=== PATIENT | male | born 1945 ===

== ENCOUNTER 2017-09-15 13:35 | Inpatient (IN) | payer MEDICARE ==
[2017-09-15] MEDS ORDERED: Piperacill/Tazo 4.5gm in Dex 4.5 GM/100 ML BAG IVPB STA (14:06)
[2017-09-15] MEDS ORDERED: Vancomycin 1 gm/NS 200 ml 1 GM/200 ML BAG IVPB STA (14:06)
[2017-09-15 14:38] LABS: BASO # 0.1 K/uL (0.0-0.2); BASO % 0.5 % (0.0-2.0); EOS % 0.1 % (0.0-4.0); HEMOGLOBIN 8.3 g/dL (12.0-18.0); LYMPH # 0.1 K/uL (1.0-4.3); LYMPH % 1.4 % (20.0-40.0); MEAN CELL VOLUME 92.9 fL (80.0-94.0); MEAN CORPUSCULAR HEMOGLOBIN 31.8 pg (27.0-31.0); MEAN CORPUSCULAR HGB CONC 34.3 g/dL (33.0-37.0); MEAN PLATELET VOLUME 6.8 fL (7.2-11.7); MONO # 0.2 K/uL (0.0-0.8); MONO % 2.2 % (0.0-10.0); NEUT # 10.4 K/uL (1.8-7.0); NEUT % 95.8 % (50.0-75.0); PLATELET COUNT 241 K/uL (130-400); RED CELL DISTRIBUTION WIDTH 14.6 % (11.5-14.5); WHITE BLOOD COUNT 10.8 K/uL (4.8-10.8)
[2017-09-15 14:40] LABS: VENOUS BLOOD GAS BASE EXCESS 5.8 mmol/L (0.0-2.0); VENOUS BLOOD GAS PCO2 40 mmHg (40-60); VENOUS BLOOD GAS PO2 20 mm/Hg (30-55); VENOUS BLOOD PH 7.48 (7.32-7.43)
[2017-09-15 14:54] LABS: INR 1.1
[2017-09-15] MEDS ORDERED: Sodium Chloride 0.9% 500 ML IV ONE (15:01)
--- NOTE | 2017-09-15 15:01 | RAD ---
HISTORY: Sepsis Patient COMPARISON: No prior. FINDINGS: LUNGS: No consolidation para PLEURA: No significant pleural effusion identified, no pneumothorax apparent. CARDIOVASCULAR: Minimal cardiomegaly suspect. Central pulmonary venous engorgement. Triple-lumen catheter dialysis type tip in right atrium. OSSEOUS STRUCTURES: No significant abnormalities. VISUALIZED UPPER ABDOMEN: Right upper quadrant cholecystectomy clips inferred OTHER FINDINGS: None. IMPRESSION: Mild cardiomegaly and mild pulmonary venous congestion. No consolidative infiltrate appreciated
[2017-09-15 15:10] LABS: TROPONIN I 0.018 ng/mL (0.00-0.120)
[2017-09-15 15:18] LABS: SQUAMOUS EPITHIAL < 1 /hpf (0-5); URINE BILIRUBIN NEGATIVE (NEGATIVE); URINE BLOOD NEGATIVE (NEGATIVE); URINE CLARITY Clear (Clear); URINE COLOR Colorless (YELLOW); URINE GLUCOSE (UA) 2+ mg/dL (Normal); URINE LEUKOCYTE ESTERASE NEG Leu/uL (Negative); URINE PROTEIN 3+ mg/dL (NEGATIVE); URINE UROBILINOGEN NORMAL mg/dL (0.2-1.0)
[2017-09-15 15:19] LABS: ALB/GLOB RATIO 1.4 (1.0-2.1); ALBUMIN 4.2 g/dL (3.5-5.0); CALCIUM 9.9 mg/dl (8.6-10.4)
[2017-09-15 15:22] LABS: ANISOCYTOSIS SLIGHT; BANDS 2 % (0-2); EOSINOPHIL 1 % (0-4); HYPOCHROMIC SLIGHT; LYMPHOCYTE 2 % (20-40); MONOCYTE 1 % (0-10); NEUTROPHIL 94 % (50-75); PLATELET ESTIMATE NORMAL (NORMAL); POIKILOCYTOSIS SLIGHT; TOTAL CELLS COUNTED 100
--- NOTE | 2017-09-15 15:36 | C.PDOC ---
History Of Present Illness 72 y/o male with PMHx of HTN and DM presents to ED with complaints of fever, chills and vomiting since this morning with associated weakness feeling. Patient started dialysis 2 weeks ago, had portacath inserted on 09/01 and has been going to dialysis Tuesday, and Tuesday. As per who is at bedside patient did not go to dialysis today secondary to symptoms. Patient denies headache, abdominal pain, throat pain or any other complaints at this time. Time Seen by Provider: 09/15/17 13:56 Chief Complaint (Nursing): Fever History Per: Patient History/Exam Limitations: no limitations Onset/Duration Of Symptoms: Hrs Current Symptoms Are (Timing): Still Present Past Medical History Reviewed: Historical Data, Nursing Documentation, Vital Signs Vital Signs: Last Vital Signs Temp 101.4 F H 09/15/17 16:21 Pulse 118 H 09/15/17 16:21 Resp 18 09/15/17 16:21 BP 101/60 09/15/17 16:21 Pulse Ox 94 L 09/15/17 16:21 - Medical History PMH: HTN, End Stage Renal Disease, Chronic Kidney Disease Surgical History: Cholecystectomy Family History: States: No Known Family Hx - Social History Hx Alcohol Use: No Hx Substance Use: No - Immunization History Hx Tetanus Toxoid Vaccination: No Hx Influenza Vaccination: No Hx Pneumococcal Vaccination: No Review Of Systems Constitutional: Positive for: Fever. Negative for: Chills Gastrointestinal: Positive for: Nausea, Vomiting. Negative for: Abdominal Pain Skin: Negative for: Rash Neurological: Positive for: Weakness. Negative for: Numbness, Headache, Dizziness Physical Exam - Physical Exam Appears: Other (Ill appearing) Skin: Warm, Dry, No Rash Head: Atraumatic, Normacephalic Oral Mucosa: Moist Neck: Normal ROM, Supple Chest: Other (Lawrence cath right chest wall ) Cardiovascular: Rhythm Regular Respiratory: Normal Breath Sounds, No Rales, No Rhonchi, No Wheezing Gastrointestinal/Abdominal: Soft, No Tenderness, No Guarding, No Rebound Extremity: No Deformity, Other (AV shunt to left arm. Good bruit ) Neurological/Psych: Oriented x3, Normal Speech ED Course And Treatment - Laboratory Results Result Diagrams: 09/15/17 14:34 09/15/17 14:34 O2 Sat by Pulse Oximetry: 95 (RA) Pulse Ox Interpretation: Normal Progress Note: ECG, Blood work, UA, Venous blood gas ordered. IV fluids, Vancomycin, Reglan and Tylenol administered Medical Decision Making Medical Decision Making: spoke with Dr. Zhang Cell number [phone], he requested hospitalist service. Disposition Discussed With : Mary Clayton Doctor Will See Patient In The: Hospital Counseled Patient/Family Regarding: Studies Performed, Diagnosis - Disposition Disposition: HOSPITALIZED Disposition Time: 16:57 Condition: GUARDED Forms: [facility] (Welsh) - Clinical Impression Clinical Impression: Fever - Scribe Statement The provider has reviewed the documentation as recorded by the Scribe Glenys Raya All medical record entries made by the Shaniaibe were at my direction and personally dictated by me. I have reviewed the chart and agree that the record accurately reflects my personal performance of the history, physical exam, medical decision making, and the department course for this patient. I have also personally directed, reviewed, and agree with the discharge instructions and disposition. Decision To Admit - Pt Status Changed To: Hospital Disposition Of: Inpatient - Admit Certification Admit to Inpatient:: After my assessment, the patient will require hospitalization for at least two midnights. This is because of the severity of symptoms shown, intensity of services needed, and/or the medical risk in this patient being treated as an outpatient. - InPatient: Physician Admission Certification:: fever, possible line sepsis complicated by ESRD and newly on HD - . Bed Request Type: Telemetry Patient Diagnosis: Fever
[2017-09-15 17:20] LABS: VENOUS BLOOD GAS BASE EXCESS -1.2 mmol/L (0.0-2.0); VENOUS BLOOD GAS PCO2 39 mmHg (40-60); VENOUS BLOOD GAS PO2 29 mm/Hg (30-55); VENOUS BLOOD PH 7.39 (7.32-7.43)
--- NOTE | 2017-09-15 18:12 | CP.PCM.HP ---
<Johan Davis - Last Filed: 09/15/17 20:52> History of Present Illness - History of Present Illness History of Present Illness: PGY-1 H&P for Dr. Coker CC: Fever, chills This is a 72 year old male with PMHx HTN, DM, ESRD on (HD T, Th, S), prostate CA s/p seed implants who presents complaining of fever and chills that began this morning. Patient had been diagnosed with renal disease 5 years ago but has held off on initiating dialysis until recently. Patient was at [facility] where on 09/01/17, he received a permacath as well as left AV fistula on the same day. Patient received two dialysis sessions after this. Patient was supposed to undergo dialysis today but has missed it due to illness. Patient also experienced associated nausea/vomiting, weakness, and generalized malaise this morning. Patient has no other complaints at this time aside from chronic constipation. PMHx: HTN, DM, ESRD on (HD T, , S), prostate CA s/p seed implants PSHx: Permacath placement and left AV fistula on 09/01/17, multiple left lower extremity orthopedic surgeries, left cataract surgery Allergies: NKDA Social: Denies tobacco, alcohol, drugs. Lives with and ambulates without assistive device. Family Hx: Mother with HTN PMD: Dr. Zhang Home meds: Norvasc 2.5 mg PO daily, Flomax 0.4 mg PO daily,Renvela 800 mg PO TID , Vitamin D 1000 units daily Present on Admission - Present on Admission Any Indicators Present on Admission: No Review of Systems - Constitutional Constitutional: Chills, Fever, Weakness - EENT Eyes: absent: Change in Vision Ears: absent: Decreased Hearing Nose/Mouth/Throat: absent: Nasal Congestion - Cardiovascular Cardiovascular: absent: Chest Pain - Respiratory Respiratory: absent: Dyspnea - Gastrointestinal Gastrointestinal: Constipation (chronic), Nausea, Vomiting. absent: Abdominal Pain, Diarrhea - Genitourinary Genitourinary: absent: Dysuria - Musculoskeletal Musculoskeletal: absent: Back Pain - Integumentary Integumentary: absent: Rash - Neurological Neurological: Weakness - Psychiatric Psychiatric: Change in Appetite (decreased) - Endocrine Endocrine: Fatigue Past Patient History - Infectious Disease Hx of Infectious Diseases: None - Past Social History Smoking Status: Never Smoked - CARDIAC Hx Hypertension: Yes - RENAL Hx Chronic Kidney Disease: Yes - ENDOCRINE/METABOLIC Hx Diabetes Mellitus Type 2: Yes - GENITOURINARY/GYNECOLOGICAL Hx Prostate Problems: Yes - PSYCHIATRIC Hx Substance Use: No - SURGICAL HISTORY Hx Cholecystectomy: Yes - ANESTHESIA Hx Anesthesia: Yes Hx Anesthesia Reactions: No Meds Allergies/Adverse Reactions: Allergies Allergy/AdvReac Type Severity Reaction Status Date / Time No Known Allergies Allergy Verified 09/15/17 13:56 Physical Exam - Constitutional Appears: No Acute Distress - Head Exam Head Exam: ATRAUMATIC, NORMOCEPHALIC - Eye Exam Eye Exam: EOMI Pupil Exam: PERRL (reactive in right pupil but not left) - ENT Exam ENT Exam: Mucous Membranes Moist - Respiratory Exam Respiratory Exam: Rales. absent: Rhonchi, Wheezes Additional comments: Coarse breath sounds bilaterally - Cardiovascular Exam Cardiovascular Exam: Tachycardia, +S1, +S2 - GI/Abdominal Exam GI & Abdominal Exam: Normal Bowel Sounds, Soft. absent: Distended, Tenderness - Extremities Exam Extremities exam: Positive for: pedal pulses present. Negative for: pedal edema Additional comments: Left arm AV fistula with palpable bruits - Neurological Exam Neurological exam: Alert, CN II-XII Intact, Oriented x3 - Psychiatric Exam Psychiatric exam: Normal Affect, Normal Mood - Skin Skin Exam: Dry, Warm Additional comments: Right side chest permacath without any discharge or exudates. Results - Vital Signs Recent Vital Signs: Last Vital Signs Temp 101.4 F H 09/15/17 16:21 Pulse 118 H 09/15/17 16:21 Resp 18 09/15/17 16:21 BP 101/60 09/15/17 16:21 Pulse Ox 95 09/15/17 16:58 - Labs Result Diagrams: 09/15/17 14:34 09/15/17 14:34 Labs: Laboratory Results - last 24 hr 09/15/17 09/15/17 09/15/17 14:34 14:34 14:34 WBC 10.8 RBC 2.60 L Hgb 8.3 L Hct 24.1 L MCV 92.9 MCH 31.8 H MCHC 34.3 RDW 14.6 H Plt Count 241 MPV 6.8 L Neut % (Auto) 95.8 H Lymph % (Auto) 1.4 L Griggs % (Auto) 2.2 Eos % (Auto) 0.1 Baso % (Auto) 0.5 Neut # (Auto) 10.4 H Lymph # (Auto) 0.1 L Griggs # (Auto) 0.2 Eos # (Auto) 0.0 Baso # (Auto) 0.1 Neutrophils % (Manual) 94 H Band Neutrophils % 2 Lymphocytes % (Manual) 2 L Monocytes % (Manual) 1 Eosinophils % (Manual) 1 Platelet Estimate Normal Hypochromasia (manual) Slight Poikilocytosis (manual Slight Anisocytosis (manual) Slight PT 12.0 INR 1.1 APTT 26 pO2 VBG pH VBG pCO2 VBG HCO3 VBG Total CO2 VBG O2 Sat (Calc) VBG Base Excess VBG Potassium Glucose Lactate FiO2 Crit Value Called To Crit Value Called By Crit Value Read Back Blood Gas Notified Time Sodium 141 Potassium 4.6 Chloride 99 Carbon Dioxide 25 Anion Gap 21 H BUN 41 H Creatinine 7.8 H* Est GFR ( Amer) 8 Est GFR (Non-Af Amer) 7 Random Glucose 132 H Calcium 9.9 Phosphorus 3.0 Magnesium 1.7 Total Bilirubin 0.6 AST 20 ALT 10 L Alkaline Phosphatase 78 Troponin I 0.0180 NT-Pro-B Natriuret Pep 1090 H Total Protein 7.2 Albumin 4.2 Globulin 3.0 Albumin/Globulin Ratio 1.4 Venous Blood Potassium Urine Color Urine Clarity Urine pH Ur Specific [place] Urine Protein Urine Glucose (UA) Urine Ketones Urine Blood Urine Nitrate Urine Bilirubin Urine Urobilinogen Ur Leukocyte Esterase Urine WBC (Auto) Urine RBC (Auto) Ur Squamous Epith Cells Influenza Typ A,B (EIA) 09/15/17 09/15/17 09/15/17 14:35 15:07 15:44 WBC RBC Hgb Hct MCV MCH MCHC RDW Plt Count MPV Neut % (Auto) Lymph % (Auto) Griggs % (Auto) Eos % (Auto) Baso % (Auto) Neut # (Auto) Lymph # (Auto) Griggs # (Auto) Eos # (Auto) Baso # (Auto) Neutrophils % (Manual) Band Neutrophils % Lymphocytes % (Manual) Monocytes % (Manual) Eosinophils % (Manual) Platelet Estimate Hypochromasia (manual) Poikilocytosis (manual Anisocytosis (manual) PT INR APTT pO2 20 L VBG pH 7.48 H VBG pCO2 40 VBG HCO3 27.8 VBG Total CO2 31.0 H VBG O2 Sat (Calc) 41.1 VBG Base Excess 5.8 H VBG Potassium 4.3 Glucose 133 H Lactate 1.4 FiO2 21.0 Crit Value Called To Crit Value Called By Crit Value Read Back Blood Gas Notified Time Sodium 140.0 Potassium Chloride 105.0 Carbon Dioxide Anion Gap BUN Creatinine Est GFR ( Amer) Est GFR (Non-Af Amer) Random Glucose Calcium Phosphorus Magnesium Total Bilirubin AST ALT Alkaline Phosphatase Troponin I NT-Pro-B Natriuret Pep Total Protein Albumin Globulin Albumin/Globulin Ratio Venous Blood Potassium 4.3 Urine Color Colorless Urine Clarity Clear Urine pH 9.0 Ur Specific [place] 1.007 Urine Protein 3+ H Urine Glucose (UA) 2+ H Urine Ketones Negative Urine Blood Negative Urine Nitrate Negative Urine Bilirubin Negative Urine Urobilinogen Normal Ur Leukocyte Esterase Neg Urine WBC (Auto) < 1 Urine RBC (Auto) < 1 Ur Squamous Epith Cells < 1 Influenza Typ A,B (EIA) Negative for flu a/b 09/15/17 17:17 WBC RBC Hgb Hct MCV MCH MCHC RDW Plt Count MPV Neut % (Auto) Lymph % (Auto) Griggs % (Auto) Eos % (Auto) Baso % (Auto) Neut # (Auto) Lymph # (Auto) Griggs # (Auto) Eos # (Auto) Baso # (Auto) Neutrophils % (Manual) Band Neutrophils % Lymphocytes % (Manual) Monocytes % (Manual) Eosinophils % (Manual) Platelet Estimate Hypochromasia (manual) Poikilocytosis (manual Anisocytosis (manual) PT INR APTT pO2 29 L VBG pH 7.39 VBG pCO2 39 L VBG HCO3 22.8 VBG Total CO2 24.8 VBG O2 Sat (Calc) 64.5 VBG Base Excess -1.2 L VBG Potassium 3.0 L Glucose 442 H* D Lactate 0.8 FiO2 Crit Value Called To Dr mccain Crit Value Called By Dmitriy agarwal Crit Value Read Back Y Blood Gas Notified Time 1720 Sodium 133.0 Potassium Chloride 85.0 L Carbon Dioxide Anion Gap BUN Creatinine Est GFR ( Amer) Est GFR (Non-Af Amer) Random Glucose Calcium Phosphorus Magnesium Total Bilirubin AST ALT Alkaline Phosphatase Troponin I NT-Pro-B Natriuret Pep Total Protein Albumin Globulin Albumin/Globulin Ratio Venous Blood Potassium 3.0 L Urine Color Urine Clarity Urine pH Ur Specific [place] Urine Protein Urine Glucose (UA) Urine Ketones Urine Blood Urine Nitrate Urine Bilirubin Urine Urobilinogen Ur Leukocyte Esterase Urine WBC (Auto) Urine RBC (Auto) Ur Squamous Epith Cells Influenza Typ A,B (EIA) Assessment & Plan - Assessment and Plan (Free Text) Plan: Sepsis--Possible infected Dialysis Catheter f/u blood cultures f/u urine cultures Given Vancomycin and Zosyn in the ED ID consult, Dr. Jimenez, help appreciated Per Dr. Jimenez, one dose of Gentamicin 80 mg IV given in the ED Zosyn 2.25 gm Q8H Tylenol 650 mg PO Q6 prn fever Zofran 4 mg Q6 prn nausea/vomiting f/u random vanco in AM labs before starting Vancomycin f/u blood cultures drawn through dialysis catheter ESRD On HD T, , S Nephro consult, Dr. Santos, help appreciated Per nephro, no need for urgent dialysis on admission, will defer to tomorrow Resumed home Renvela 800 mg PO TID History of Hypertension Resumed home Norvasc 2.5 mg PO daily History of Diabetes Patient is not on any medications Regular ISS-medium dose Accuchecks Hypogylcemic Treatment Protocol f/u hemoglobin A1c History of Prostate CA Resumed home Flomax 0.4 mg PO daily Prophylaxis Liquid diet Heparin 5000 units SC Q8 Discussed with Dr. John Paul Davis PGY-1 <Varun Coker - Last Filed: 09/15/17 22:49> Results - Vital Signs Recent Vital Signs: Last Vital Signs Temp 99.7 F H 09/15/17 19:00 Pulse 99 H 09/15/17 19:00 Resp 20 09/15/17 19:00 BP 96/56 L 09/15/17 19:00 Pulse Ox 97 09/15/17 19:00 - Labs Result Diagrams: 09/15/17 14:34 09/15/17 14:34 Labs: Laboratory Results - last 24 hr 09/15/17 09/15/17 09/15/17 14:34 14:34 14:34 WBC 10.8 RBC 2.60 L Hgb 8.3 L Hct 24.1 L MCV 92.9 MCH 31.8 H MCHC 34.3 RDW 14.6 H Plt Count 241 MPV 6.8 L Neut % (Auto) 95.8 H Lymph % (Auto) 1.4 L Griggs % (Auto) 2.2 Eos % (Auto) 0.1 Baso % (Auto) 0.5 Neut # (Auto) 10.4 H Lymph # (Auto) 0.1 L Gr[place]gs # (Auto) 0.2 Eos # (Auto) 0.0 Baso # (Auto) 0.1 Neutrophils % (Manual) 94 H Band Neutrophils % 2 Lymphocytes % (Manual) 2 L Monocytes % (Manual) 1 Eosinophils % (Manual) 1 Platelet Estimate Normal Hypochromasia (manual) Slight Poikilocytosis (manual Slight Anisocytosis (manual) Slight PT 12.0 INR 1.1 APTT 26 pO2 VBG pH VBG pCO2 VBG HCO3 VBG Total CO2 VBG O2 Sat (Calc) VBG Base Excess VBG Potassium Glucose Lactate FiO2 Crit Value Called To Crit Value Called By Crit Value Read Back Blood Gas Notified Time Sodium 141 Potassium 4.6 Chloride 99 Carbon Dioxide 25 Anion Gap 21 H BUN 41 H Creatinine 7.8 H* Est GFR ( Amer) 8 Est GFR (Non-Af Amer) 7 POC Glucose (mg/dL) Random Glucose 132 H Calcium 9.9 Phosphorus 3.0 Magnesium 1.7 Total Bilirubin 0.6 AST 20 ALT 10 L Alkaline Phosphatase 78 Troponin I 0.0180 NT-Pro-B Natriuret Pep 1090 H Total Protein 7.2 Albumin 4.2 Globulin 3.0 Albumin/Globulin Ratio 1.4 Venous Blood Potassium Urine Color Urine Clarity Urine pH Ur Specific [place] Urine Protein Urine Glucose (UA) Urine Ketones Urine Blood Urine Nitrate Urine Bilirubin Urine Urobilinogen Ur Leukocyte Esterase Urine WBC (Auto) Urine RBC (Auto) Ur Squamous Epith Cells Influenza Typ A,B (EIA) 09/15/17 09/15/17 09/15/17 14:35 15:07 15:44 WBC RBC Hgb Hct MCV MCH MCHC RDW Plt Count MPV Neut % (Auto) Lymph % (Auto) Griggs % (Auto) Eos % (Auto) Baso % (Auto) Neut # (Auto) Lymph # (Auto) Griggs # (Auto) Eos # (Auto) Baso # (Auto) Neutrophils % (Manual) Band Neutrophils % Lymphocytes % (Manual) Monocytes % (Manual) Eosinophils % (Manual) Platelet Estimate Hypochromasia (manual) Poikilocytosis (manual Anisocytosis (manual) PT INR APTT pO2 20 L VBG pH 7.48 H VBG pCO2 40 VBG HCO3 27.8 VBG Total CO2 31.0 H VBG O2 Sat (Calc) 41.1 VBG Base Excess 5.8 H VBG Potassium 4.3 Glucose 133 H Lactate 1.4 FiO2 21.0 Crit Value Called To Crit Value Called By Crit Value Read Back Blood Gas Notified Time Sodium 140.0 Potassium Chloride 105.0 Carbon Dioxide Anion Gap BUN Creatinine Est GFR ( Amer) Est GFR (Non-Af Amer) POC Glucose (mg/dL) Random Glucose Calcium Phosphorus Magnesium Total Bilirubin AST ALT Alkaline Phosphatase Troponin I NT-Pro-B Natriuret Pep Total Protein Albumin Globulin Albumin/Globulin Ratio Venous Blood Potassium 4.3 Urine Color Colorless Urine Clarity Clear Urine pH 9.0 Ur Specific [place] 1.007 Urine Protein 3+ H Urine Glucose (UA) 2+ H Urine Ketones Negative Urine Blood Negative Urine Nitrate Negative Urine Bilirubin Negative Urine Urobilinogen Normal Ur Leukocyte Esterase Neg Urine WBC (Auto) < 1 Urine RBC (Auto) < 1 Ur Squamous Epith Cells < 1 Influenza Typ A,B (EIA) Negative for flu a/b 09/15/17 09/15/17 17:17 20:51 WBC RBC Hgb Hct MCV MCH MCHC RDW Plt Count MPV Neut % (Auto) Lymph % (Auto) Griggs % (Auto) Eos % (Auto) Baso % (Auto) Neut # (Auto) Lymph # (Auto) Griggs # (Auto) Eos # (Auto) Baso # (Auto) Neutrophils % (Manual) Band Neutrophils % Lymphocytes % (Manual) Monocytes % (Manual) Eosinophils % (Manual) Platelet Estimate Hypochromasia (manual) Poikilocytosis (manual Anisocytosis (manual) PT INR APTT pO2 29 L VBG pH 7.39 VBG pCO2 39 L VBG HCO3 22.8 VBG Total CO2 24.8 VBG O2 Sat (Calc) 64.5 VBG Base Excess -1.2 L VBG Potassium 3.0 L Glucose 442 H* D Lactate 0.8 FiO2 Crit Value Called To Dr mccain Crit Value Called By Dmitriy agarwal Crit Value Read Back Y Blood Gas Notified Time 1720 Sodium 133.0 Potassium Chloride 85.0 L Carbon Dioxide Anion Gap BUN Creatinine Est GFR ( Amer) Est GFR (Non-Af Amer) POC Glucose (mg/dL) 130 H Random Glucose Calcium Phosphorus Magnesium Total Bilirubin AST ALT Alkaline Phosphatase Troponin I NT-Pro-B Natriuret Pep Total Protein Albumin Globulin Albumin/Globulin Ratio Venous Blood Potassium 3.0 L Urine Color Urine Clarity Urine pH Ur Specific [place] Urine Protein Urine Glucose (UA) Urine Ketones Urine Blood Urine Nitrate Urine Bilirubin Urine Urobilinogen Ur Leukocyte Esterase Urine WBC (Auto) Urine RBC (Auto) Ur Squamous Epith Cells Influenza Typ A,B (EIA) Attending/Attestation - Attestation I have personally seen and examined this patient.: Yes I have fully participated in the care of the patient.: Yes I have reviewed all pertinent clinical information: Yes Notes (Text): Seen and examined.History taken from his and the patient 1.Fever with chills this morning/rule out sepsis 2.New dialysis patient/recent perma cath and AV access at 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 spoke to DR Santos. case discussed with the resident I agree with the recommendation of the resident's assessment and the plan
[2017-09-15] MEDS: (Novolin R) Insulin Human Regular 100 units/ml vial SC SCH (21:12)
[2017-09-15] MEDS: Piperacill/Tazo 2.25gm in Dex 2.25 GM/50 ML BAG IVPB SCH (23:48)
[2017-09-16] MEDS ORDERED: Piperacillin/Tazobact 2.25 GM in Sodium Chloride 100 ML IVPB SCH
[2017-09-16 06:32] LABS: BASO # 0.1 K/uL (0.0-0.2); BASO % 0.5 % (0.0-2.0); HEMOGLOBIN 6.8 g/dL (12.0-18.0); LYMPH # 0.2 K/uL (1.0-4.3); LYMPH % 1.9 % (20.0-40.0); MEAN CELL VOLUME 93.1 fL (80.0-94.0); MEAN CORPUSCULAR HEMOGLOBIN 31.6 pg (27.0-31.0); MEAN CORPUSCULAR HGB CONC 33.9 g/dL (33.0-37.0); MEAN PLATELET VOLUME 7.4 fL (7.2-11.7); MONO # 0.3 K/uL (0.0-0.8); NEUT # 10.6 K/uL (1.8-7.0); NEUT % 94.6 % (50.0-75.0); PLATELET COUNT 190 K/uL (130-400); RBC 2.17 Mil/uL (4.40-5.90); RED CELL DISTRIBUTION WIDTH 15.1 % (11.5-14.5); WHITE BLOOD COUNT 11.2 K/uL (4.8-10.8)
[2017-09-16 07:17] LABS: ALB/GLOB RATIO 1.4 (1.0-2.1); ALBUMIN 3.3 g/dL (3.5-5.0); CALCIUM 9.1 mg/dl (8.6-10.4)
[2017-09-16] MEDS: (Novolin R) Insulin Human Regular 100 units/ml vial SC SCH ×4 (07:41→21:46)
[2017-09-16] MEDS: Piperacill/Tazo 2.25gm in Dex 2.25 GM/50 ML BAG IVPB SCH ×2 (08:00→16:57)
[2017-09-16 08:19] LABS: BANDS 2 % (0-2); LYMPHOCYTE 3 % (20-40); MONOCYTE 2 % (0-10); TOTAL CELLS COUNTED 100
[2017-09-16 08:20] LABS: NEUTROPHIL 93 % (50-75); PLATELET ESTIMATE NORMAL (NORMAL)
[2017-09-16 08:21] LABS: ANISOCYTOSIS SLIGHT; POIKILOCYTOSIS SLIGHT; TARGET CELLS SLIGHT
[2017-09-16 08:22] LABS: HYPOCHROMIC MODERATE
[2017-09-16] MEDS ORDERED: Epoetin Alfa 10,000 unit/ml Dialysis IV ONE ×2 (10:15→12:15)
[2017-09-16] MEDS ORDERED: Vancomycin 1 gm/NS 200 ml 1 GM/200 ML BAG IVPB PRN (11:01)
--- NOTE | 2017-09-16 12:32 | CP.PCM.PN ---
Subjective - Date & Time of Evaluation Date of Evaluation: 09/16/17 Time of Evaluation: 09:20 - Subjective Subjective: Medicine progress note for Dr. Nicholas Patient seen and examined at bedside this morning. Patient reports feeling better than yesterday. He did have an episode of clear vomit this morning but is now tolerating his liquid diet. Patient also complaining of cough with clear sputum. Patient has no other complaints at this time. Later during dialysis, patient developed chills, and so dialysis was stopped. Objective - Vital Signs/Intake and Output Vital Signs (last 24 hours): Temp Pulse Resp BP Pulse Ox 97.7 F 67 16 127/74 97 09/16/17 12:02 09/16/17 12:02 09/16/17 12:02 09/16/17 12:02 09/16/17 10:50 Intake and Output: 09/16/17 09/16/17 06:59 18:59 Intake Total 150 355 Output Total 100 Balance 50 355 - Medications Medications: Current Medications Acetaminophen (Tylenol 325mg Tab) 650 mg PO Q6 PRN PRN Reason: Fever >100.4 F Ergocalciferol (Drisdol 50,000 Intl Units Cap) 1 cap PO QWK [facility] Heparin Sodium (Porcine) (Heparin) 5,000 units SC Q8 [facility] Last Admin: 09/16/17 05:41 Dose: 5,000 units Piperacillin Sod/Tazobactam Sod (Zosyn 2.25 Gm Iv Premix) 2.25 gm in 50 mls @ 100 mls/hr IVPB Q8H [facility] Last Admin: 09/16/17 08:00 Dose: 100 mls/hr Vancomycin/Sodium Chloride (Vancomycin 1 Gm/Ns 200 Ml) 1 gm in 200 mls @ 166.7 mls/hr IVPB DIAL PRN; Protocol PRN Reason: give post dialysis Insulin Human Regular (Novolin R) 0 unit SC ACHS VICKY PRN Reason: Protocol Last Admin: 09/16/17 11:16 Dose: Not Given Ondansetron HCl (Zofran Inj) 4 mg IVP Q6 PRN PRN Reason: Nausea/Vomiting Last Admin: 09/16/17 08:01 Dose: 4 mg Pantoprazole Sodium (Protonix Inj) 40 mg IVP DAILY [facility] Last Admin: 09/16/17 09:40 Dose: 40 mg Sevelamer Carbonate (Renvela) 800 mg PO TID [facility] Last Admin: 09/16/17 09:40 Dose: 800 mg Tamsulosin HCl (Flomax) 0.4 mg PO DAILY [facility] Last Admin: 09/16/17 09:40 Dose: 0.4 mg - Labs Labs: 09/16/17 06:22 09/16/17 06:22 PT 12.0 SECONDS (9.7-12.2) 09/15/17 14:34 INR 1.1 09/15/17 14:34 APTT 29 SECONDS (21-34) 09/16/17 06:22 - Additional Findings Additional findings: - Constitutional Appears: No Acute Distress - Head Exam Head Exam: ATRAUMATIC, NORMOCEPHALIC - Eye Exam Eye Exam: EOMI Pupil Exam: PERRL (reactive in right pupil but not left) - ENT Exam ENT Exam: Mucous Membranes Moist - Respiratory Exam Respiratory Exam: Rales. absent: Rhonchi, Wheezes Additional comments: Coarse breath sounds bilaterally - Cardiovascular Exam Cardiovascular Exam: Tachycardia, +S1, +S2 - GI/Abdominal Exam GI & Abdominal Exam: Normal Bowel Sounds, Soft. absent: Distended, Tenderness - Extremities Exam Extremities exam: Positive for: pedal pulses present. Negative for: pedal edema Additional comments: Left arm AV fistula with palpable bruits - Neurological Exam Neurological exam: Alert, CN II-XII Intact, Oriented x3 - Psychiatric Exam Psychiatric exam: Normal Affect, Normal Mood - Skin Skin Exam: Dry, Warm Additional comments: Right side chest permacath without any discharge or exudates. Assessment and Plan - Assessment and Plan (Free Text) Plan: Sepsis--Possible infected Dialysis Catheter blood cultures grew gram positive cocci urine cultures negative Given Vancomycin and Zosyn in the ED ID consult, Dr. Meadows, help appreciated Per Dr. Meadows, one dose of Gentamicin 80 mg IV given in the ED Zosyn 2.25 gm Q8H Tylenol 650 mg PO Q6 prn fever Zofran 4 mg Q6 prn nausea/vomiting Vancomycin 1 gm IV given today after dialysis f/u blood cultures drawn through dialysis catheter Vascular surgery consult, Dr. Mccabe, help appreciated * dialysis catheter removed and a new one will be placed likely on Tuesday ESRD Originally scheduled HD , Nephro consult, Dr. Santos, help appreciated Resumed home Renvela 800 mg PO TID Will undergo dialysis after new catheter placed History of Hypertension Resumed home Norvasc 2.5 mg PO daily History of Anemia Likely of chronic disease Transfused 1 unit of pRBCs this morning History of Diabetes Patient is not on any medications Regular ISS-medium dose Accuchecks Hypogylcemic Treatment Protocol Hemoglobin A1c 5.9 History of Prostate CA Resumed home Flomax 0.4 mg PO daily Prophylaxis Liquid diet Heparin 5000 units SC Q8 Protonix 40 mg IV daily Simethicone Discussed with Dr. Cristopher Davis PGY-1
[2017-09-16] MEDS ORDERED: Simethicone 40 mg/0.6 ml Liquid (30 ml) PO PRN (12:41)
--- NOTE | 2017-09-16 12:51 | CP.PCM.CON ---
History of Present Illness - History of Present Illness History of Present Illness: Vascular Surgery Consult Note for Dr. Mccabe the Patient is a 72yo M that presents with fevers and chills that occurred while undergoing dialysis through his right Permacath. Vascular surgery was consulted for suspected infected permacath. He had a permacath and LUE AVF created at [facility] on 09/[address] Baca. The patient reports one episode of vomiting this morning with associated fevers and chills, the patient currently denies abd pain, dizziness, numbness or tingling in extremities, chest pain, shortness of breath, diarrhea, constipation, discharge from his permacatch or surgical site on his LUE. PMH: DM, HTN, ESRD on HD TTS, Prostate CA PSH: Permacath and LUE AVF creation on 09/01 Allergies: NKDA Review of Systems - Constitutional Constitutional: Chills, Fever - Cardiovascular Cardiovascular: absent: Chest Pain, Chest Pain at Rest, Dyspnea - Respiratory Respiratory: absent: Cough, Dyspnea - Gastrointestinal Gastrointestinal: absent: Abdominal Pain - Integumentary Integumentary: absent: Bleeding Lesions, Swelling, Unusual Bruising Past Patient History - Infectious Disease Hx of Infectious Diseases: None - Past Medical History & Family History Past Medical History?: Yes - Past Social History Smoking Status: Never Smoked - CARDIAC Hx Hypertension: Yes - PULMONARY Hx Respiratory Disorders: No - NEUROLOGICAL Hx Neurological Disorder: No - HEENT Hx Cataracts: Yes - RENAL Hx Chronic Kidney Disease: Yes - ENDOCRINE/METABOLIC Hx Diabetes Mellitus Type 2: Yes - HEMATOLOGICAL/ONCOLOGICAL Hx Blood Disorders: Yes Hx Anemia: Yes - INTEGUMENTARY Hx Dermatological Problems: No - MUSCULOSKELETAL/RHEUMATOLOGICAL Hx Falls: No - GASTROINTESTINAL Hx Gastrointestinal Disorders: No - GENITOURINARY/GYNECOLOGICAL Hx Prostate Problems: Yes - PSYCHIATRIC Hx Substance Use: No - SURGICAL HISTORY Hx Cholecystectomy: Yes - ANESTHESIA Hx Anesthesia: Yes Hx Anesthesia Reactions: No Meds Allergies/Adverse Reactions: Allergies Allergy/AdvReac Type Severity Reaction Status Date / Time No Known Allergies Allergy Verified 09/15/17 13:56 - Medications Medications: Current Medications Acetaminophen (Tylenol 325mg Tab) 650 mg PO Q6 PRN PRN Reason: Fever >100.4 F Ergocalciferol (Drisdol 50,000 Intl Units Cap) 1 cap PO QWK [facility] Heparin Sodium (Porcine) (Heparin) 5,000 units SC Q8 [facility] Last Admin: 09/16/17 05:41 Dose: 5,000 units Piperacillin Sod/Tazobactam Sod (Zosyn 2.25 Gm Iv Premix) 2.25 gm in 50 mls @ 100 mls/hr IVPB Q8H [facility] Last Admin: 09/16/17 08:00 Dose: 100 mls/hr Vancomycin/Sodium Chloride (Vancomycin 1 Gm/Ns 200 Ml) 1 gm in 200 mls @ 166.7 mls/hr IVPB DIAL PRN; Protocol PRN Reason: give post dialysis Insulin Human Regular (Novolin R) 0 unit SC ACHS [facility] PRN Reason: Protocol Last Admin: 09/16/17 11:16 Dose: Not Given Ondansetron HCl (Zofran Inj) 4 mg IVP Q6 PRN PRN Reason: Nausea/Vomiting Last Admin: 09/16/17 08:01 Dose: 4 mg Pantoprazole Sodium (Protonix Inj) 40 mg IVP DAILY [facility] Last Admin: 09/16/17 09:40 Dose: 40 mg Sevelamer Carbonate (Renvela) 800 mg PO TID [facility] Last Admin: 09/16/17 09:40 Dose: 800 mg Simethicone (Mylicon Liq) 40 mg PO QID PRN PRN Reason: gas retention/gas pain Tamsulosin HCl (Flomax) 0.4 mg PO DAILY [facility] Last Admin: 09/16/17 09:40 Dose: 0.4 mg Physical Exam - Constitutional Appears: Well, No Acute Distress - Head Exam Head Exam: ATRAUMATIC, NORMAL INSPECTION - Eye Exam Eye Exam: Normal appearance - ENT Exam ENT Exam: Mucous Membranes Moist - Respiratory Exam Respiratory Exam: NORMAL BREATHING PATTERN - GI/Abdominal Exam GI & Abdominal Exam: Soft. absent: Distended - Extremities Exam Extremities exam: Positive for: normal capillary refill Additional comments: Mild erythema around permacath insertion site. LUE AVF present, good thrill, no drainge noted from surgical site. - Neurological Exam Neurological exam: Alert, Oriented x3 - Psychiatric Exam Psychiatric exam: Normal Affect, Normal Mood - Skin Skin Exam: Dry, Intact, Normal Color, Warm Results - Vital Signs Recent Vital Signs: Last Vital Signs Temp 97.7 F 09/16/17 12:02 Pulse 67 09/16/17 12:02 Resp 16 09/16/17 12:02 BP 127/74 09/16/17 12:02 Pulse Ox 97 09/16/17 10:50 - Labs Result Diagrams: 09/16/17 06:22 09/16/17 06:22 Labs: Laboratory Results - last 24 hr 09/15/17 09/15/17 09/15/17 14:34 14:34 14:34 WBC 10.8 RBC 2.60 L Hgb 8.3 L Hct 24.1 L MCV 92.9 MCH 31.8 H MCHC 34.3 RDW 14.6 H Plt Count 241 MPV 6.8 L Neut % (Auto) 95.8 H Lymph % (Auto) 1.4 L [place] % (Auto) 2.2 Eos % (Auto) 0.1 Baso % (Auto) 0.5 Neut # (Auto) 10.4 H Lymph # (Auto) 0.1 L [place] # (Auto) 0.2 Eos # (Auto) 0.0 Baso # (Auto) 0.1 Neutrophils % (Manual) 94 H Band Neutrophils % 2 Lymphocytes % (Manual) 2 L Monocytes % (Manual) 1 Eosinophils % (Manual) 1 Platelet Estimate Normal Hypochromasia (manual) Slight Poikilocytosis (manual Slight Anisocytosis (manual) Slight Target Cells PT 12.0 INR 1.1 APTT 26 pO2 VBG pH VBG pCO2 VBG HCO3 VBG Total CO2 VBG O2 Sat (Calc) VBG Base Excess VBG Potassium Glucose Lactate FiO2 Crit Value Called To Crit Value Called By Crit Value Read Back Blood Gas Notified Time Sodium 141 Potassium 4.6 Chloride 99 Carbon Dioxide 25 Anion Gap 21 H BUN 41 H Creatinine 7.8 H* Est GFR ( Amer) 8 Est GFR (Non-Af Amer) 7 POC Glucose (mg/dL) Random Glucose 132 H Hemoglobin A1c Calcium 9.9 Phosphorus 3.0 Magnesium 1.7 Total Bilirubin 0.6 AST 20 ALT 10 L Alkaline Phosphatase 78 Troponin I 0.0180 NT-Pro-B Natriuret Pep 1090 H Total Protein 7.2 Albumin 4.2 Globulin 3.0 Albumin/Globulin Ratio 1.4 Venous Blood Potassium Urine Color Urine Clarity Urine pH Ur Specific [place] Urine Protein Urine Glucose (UA) Urine Ketones Urine Blood Urine Nitrate Urine Bilirubin Urine Urobilinogen Ur Leukocyte Esterase Urine WBC (Auto) Urine RBC (Auto) Ur Squamous Epith Cells Random Vancomycin Influenza Typ A,B (EIA) Blood Type Blood Type Confirm Antibody Screen 09/15/17 09/15/17 09/15/17 14:35 15:07 15:44 WBC RBC Hgb Hct MCV MCH MCHC RDW Plt Count MPV Neut % (Auto) Lymph % (Auto) [place] % (Auto) Eos % (Auto) Baso % (Auto) Neut # (Auto) Lymph # (Auto) [place] # (Auto) Eos # (Auto) Baso # (Auto) Neutrophils % (Manual) Band Neutrophils % Lymphocytes % (Manual) Monocytes % (Manual) Eosinophils % (Manual) Platelet Estimate Hypochromasia (manual) Poikilocytosis (manual Anisocytosis (manual) Target Cells PT INR APTT pO2 20 L VBG pH 7.48 H VBG pCO2 40 VBG HCO3 27.8 VBG Total CO2 31.0 H VBG O2 Sat (Calc) 41.1 VBG Base Excess 5.8 H VBG Potassium 4.3 Glucose 133 H Lactate 1.4 FiO2 21.0 Crit Value Called To Crit Value Called By Crit Value Read Back Blood Gas Notified Time Sodium 140.0 Potassium Chloride 105.0 Carbon Dioxide Anion Gap BUN Creatinine Est GFR ( Amer) Est GFR (Non-Af Amer) POC Glucose (mg/dL) Random Glucose Hemoglobin A1c Calcium Phosphorus Magnesium Total Bilirubin AST ALT Alkaline Phosphatase Troponin I NT-Pro-B Natriuret Pep Total Protein Albumin Globulin Albumin/Globulin Ratio Venous Blood Potassium 4.3 Urine Color Colorless Urine Clarity Clear Urine pH 9.0 Ur Specific [place] 1.007 Urine Protein 3+ H Urine Glucose (UA) 2+ H Urine Ketones Negative Urine Blood Negative Urine Nitrate Negative Urine Bilirubin Negative Urine Urobilinogen Normal Ur Leukocyte Esterase Neg Urine WBC (Auto) < 1 Urine RBC (Auto) < 1 Ur Squamous Epith Cells < 1 Random Vancomycin Influenza Typ A,B (EIA) Negative for flu a/b Blood Type Blood Type Confirm Antibody Screen 09/15/17 09/15/17 09/16/17 17:17 20:51 06:01 WBC RBC Hgb Hct MCV MCH MCHC RDW Plt Count MPV Neut % (Auto) Lymph % (Auto) [place] % (Auto) Eos % (Auto) Baso % (Auto) Neut # (Auto) Lymph # (Auto) [place] # (Auto) Eos # (Auto) Baso # (Auto) Neutrophils % (Manual) Band Neutrophils % Lymphocytes % (Manual) Monocytes % (Manual) Eosinophils % (Manual) Platelet Estimate Hypochromasia (manual) Poikilocytosis (manual Anisocytosis (manual) Target Cells PT INR APTT pO2 29 L VBG pH 7.39 VBG pCO2 39 L VBG HCO3 22.8 VBG Total CO2 24.8 VBG O2 Sat (Calc) 64.5 VBG Base Excess -1.2 L VBG Potassium 3.0 L Glucose 442 H* D Lactate 0.8 FiO2 Crit Value Called To Dr mccain Crit Value Called By Dmitriy agarwal Crit Value Read Back Y Blood Gas Notified Time 1720 Sodium 133.0 Potassium Chloride 85.0 L Carbon Dioxide Anion Gap BUN Creatinine Est GFR ( Amer) Est GFR (Non-Af Amer) POC Glucose (mg/dL) 130 H 130 H Random Glucose Hemoglobin A1c Calcium Phosphorus Magnesium Total Bilirubin AST ALT Alkaline Phosphatase Troponin I NT-Pro-B Natriuret Pep Total Protein Albumin Globulin Albumin/Globulin Ratio Venous Blood Potassium 3.0 L Urine Color Urine Clarity Urine pH Ur Specific [place] Urine Protein Urine Glucose (UA) Urine Ketones Urine Blood Urine Nitrate Urine Bilirubin Urine Urobilinogen Ur Leukocyte Esterase Urine WBC (Auto) Urine RBC (Auto) Ur Squamous Epith Cells Random Vancomycin Influenza Typ A,B (EIA) Blood Type Blood Type Confirm Antibody Screen 09/16/17 09/16/17 09/16/17 06:22 06:22 06:22 WBC 11.2 H RBC 2.17 L Hgb 6.8 L Hct 20.2 L MCV 93.1 MCH 31.6 H MCHC 33.9 RDW 15.1 H Plt Count 190 MPV 7.4 Neut % (Auto) 94.6 H Lymph % (Auto) 1.9 L [place] % (Auto) 3.0 Eos % (Auto) 0.0 Baso % (Auto) 0.5 Neut # (Auto) 10.6 H Lymph # (Auto) 0.2 L [place] # (Auto) 0.3 Eos # (Auto) 0.0 Baso # (Auto) 0.1 Neutrophils % (Manual) 93 H Band Neutrophils % 2 Lymphocytes % (Manual) 3 L Monocytes % (Manual) 2 Eosinophils % (Manual) Platelet Estimate Normal Hypochromasia (manual) Moderate Poikilocytosis (manual Slight Anisocytosis (manual) Slight Target Cells Slight PT INR APTT pO2 VBG pH VBG pCO2 VBG HCO3 VBG Total CO2 VBG O2 Sat (Calc) VBG Base Excess VBG Potassium Glucose Lactate FiO2 Crit Value Called To Crit Value Called By Crit Value Read Back Blood Gas Notified Time Sodium 139 Potassium 4.7 Chloride 100 Carbon Dioxide 23 Anion Gap 20 BUN 49 H Creatinine 8.5 H* Est GFR ( Amer) 7 Est GFR (Non-Af Amer) 6 POC Glucose (mg/dL) Random Glucose 111 H Hemoglobin A1c Calcium 9.1 Phosphorus 5.1 H Magnesium 1.8 Total Bilirubin 0.7 AST 23 ALT 17 L D Alkaline Phosphatase 54 Troponin I NT-Pro-B Natriuret Pep Total Protein 5.7 L Albumin 3.3 L D Globulin 2.4 Albumin/Globulin Ratio 1.4 Venous Blood Potassium Urine Color Urine Clarity Urine pH Ur Specific [place] Urine Protein Urine Glucose (UA) Urine Ketones Urine Blood Urine Nitrate Urine Bilirubin Urine Urobilinogen Ur Leukocyte Esterase Urine WBC (Auto) Urine RBC (Auto) Ur Squamous Epith Cells Random Vancomycin 14.32 Influenza Typ A,B (EIA) Blood Type Blood Type Confirm Antibody Screen 09/16/17 09/16/17 09/16/17 06:22 06:22 08:26 WBC RBC Hgb Hct MCV MCH MCHC RDW Plt Count MPV Neut % (Auto) Lymph % (Auto) [place] % (Auto) Eos % (Auto) Baso % (Auto) Neut # (Auto) Lymph # (Auto) [place] # (Auto) Eos # (Auto) Baso # (Auto) Neutrophils % (Manual) Band Neutrophils % Lymphocytes % (Manual) Monocytes % (Manual) Eosinophils % (Manual) Platelet Estimate Hypochromasia (manual) Poikilocytosis (manual Anisocytosis (manual) Target Cells PT INR APTT 29 pO2 VBG pH VBG pCO2 VBG HCO3 VBG Total CO2 VBG O2 Sat (Calc) VBG Base Excess VBG Potassium Glucose Lactate FiO2 Crit Value Called To Crit Value Called By Crit Value Read Back Blood Gas Notified Time Sodium Potassium Chloride Carbon Dioxide Anion Gap BUN Creatinine Est GFR ( Amer) Est GFR (Non-Af Amer) POC Glucose (mg/dL) Random Glucose Hemoglobin A1c 5.9 Calcium Phosphorus Magnesium Total Bilirubin AST ALT Alkaline Phosphatase Troponin I NT-Pro-B Natriuret Pep Total Protein Albumin Globulin Albumin/Globulin Ratio Venous Blood Potassium Urine Color Urine Clarity Urine pH Ur Specific [place] Urine Protein Urine Glucose (UA) Urine Ketones Urine Blood Urine Nitrate Urine Bilirubin Urine Urobilinogen Ur Leukocyte Esterase Urine WBC (Auto) Urine RBC (Auto) Ur Squamous Epith Cells Random Vancomycin Influenza Typ A,B (EIA) Blood Type B POSITIVE Blood Type Confirm B POSITIVE Antibody Screen Negative 09/16/17 11:08 WBC RBC Hgb Hct MCV MCH MCHC RDW Plt Count MPV Neut % (Auto) Lymph % (Auto) [place] % (Auto) Eos % (Auto) Baso % (Auto) Neut # (Auto) Lymph # (Auto) [place] # (Auto) Eos # (Auto) Baso # (Auto) Neutrophils % (Manual) Band Neutrophils % Lymphocytes % (Manual) Monocytes % (Manual) Eosinophils % (Manual) Platelet Estimate Hypochromasia (manual) Poikilocytosis (manual Anisocytosis (manual) Target Cells PT INR APTT pO2 VBG pH VBG pCO2 VBG HCO3 VBG Total CO2 VBG O2 Sat (Calc) VBG Base Excess VBG Potassium Glucose Lactate FiO2 Crit Value Called To Crit Value Called By Crit Value Read Back Blood Gas Notified Time Sodium Potassium Chloride Carbon Dioxide Anion Gap BUN Creatinine Est GFR ( Amer) Est GFR (Non-Af Amer) POC Glucose (mg/dL) 143 H Random Glucose Hemoglobin A1c Calcium Phosphorus Magnesium Total Bilirubin AST ALT Alkaline Phosphatase Troponin I NT-Pro-B Natriuret Pep Total Protein Albumin Globulin Albumin/Globulin Ratio Venous Blood Potassium Urine Color Urine Clarity Urine pH Ur Specific [place] Urine Protein Urine Glucose (UA) Urine Ketones Urine Blood Urine Nitrate Urine Bilirubin Urine Urobilinogen Ur Leukocyte Esterase Urine WBC (Auto) Urine RBC (Auto) Ur Squamous Epith Cells Random Vancomycin Influenza Typ A,B (EIA) Blood Type Blood Type Confirm Antibody Screen Assessment & Plan - Assessment and Plan (Free Text) Assessment: 72yo M w/ Infected Permacath Plan: -Permacath removed -Plan for new permacath on Tuesday 09/19 -continue Abx -continue medicine recommendations -discussed with attending, Dr. Estelle Larsen, PGY-3
--- NOTE | 2017-09-16 13:33 | CARD ---
APPROVED REPORT EKG Measurement Heart [id number] <Conclusion> Sinus tachycardia Left axis deviation Right bundle branch block Abnormal ECG
[2017-09-16] MEDS ORDERED: Simethicone 80 mg Chewtab PO PRN (14:45)
--- NOTE | 2017-09-16 15:27 | CP.PCM.CON ---
History of Present Illness - History of Present Illness History of Present Illness: dictated Past Patient History - Infectious Disease Hx of Infectious Diseases: None - Past Medical History & Family History Past Medical History?: Yes - Past Social History Smoking Status: Never Smoked - CARDIAC Hx Hypertension: Yes - PULMONARY Hx Respiratory Disorders: No - NEUROLOGICAL Hx Neurological Disorder: No - HEENT Hx Cataracts: Yes - RENAL Hx Chronic Kidney Disease: Yes - ENDOCRINE/METABOLIC Hx Diabetes Mellitus Type 2: Yes - HEMATOLOGICAL/ONCOLOGICAL Hx Blood Disorders: Yes Hx Anemia: Yes - INTEGUMENTARY Hx Dermatological Problems: No - MUSCULOSKELETAL/RHEUMATOLOGICAL Hx Falls: No - GASTROINTESTINAL Hx Gastrointestinal Disorders: No - GENITOURINARY/GYNECOLOGICAL Hx Prostate Problems: Yes - PSYCHIATRIC Hx Substance Use: No - SURGICAL HISTORY Hx Cholecystectomy: Yes - ANESTHESIA Hx Anesthesia: Yes Hx Anesthesia Reactions: No Meds Allergies/Adverse Reactions: Allergies Allergy/AdvReac Type Severity Reaction Status Date / Time No Known Allergies Allergy Verified 09/15/17 13:56 - Medications Medications: Current Medications Acetaminophen (Tylenol 325mg Tab) 650 mg PO Q6 PRN PRN Reason: Fever >100.4 F Last Admin: 09/16/17 13:15 Dose: 650 mg Ergocalciferol (Drisdol 50,000 Intl Units Cap) 1 cap PO QWK [facility] Heparin Sodium (Porcine) (Heparin) 5,000 units SC Q8 [facility] Last Admin: 09/16/17 05:41 Dose: 5,000 units Piperacillin Sod/Tazobactam Sod (Zosyn 2.25 Gm Iv Premix) 2.25 gm in 50 mls @ 100 mls/hr IVPB Q8H [facility] Last Admin: 09/16/17 08:00 Dose: 100 mls/hr Insulin Human Regular (Novolin R) 0 unit SC ACHS [facility] PRN Reason: Protocol Last Admin: 09/16/17 11:16 Dose: Not Given Ondansetron HCl (Zofran Inj) 4 mg IVP Q6 PRN PRN Reason: Nausea/Vomiting Last Admin: 09/16/17 08:01 Dose: 4 mg Pantoprazole Sodium (Protonix Inj) 40 mg IVP DAILY [facility] Last Admin: 09/16/17 09:40 Dose: 40 mg Sevelamer Carbonate (Renvela) 800 mg PO TID [facility] Last Admin: 09/16/17 13:15 Dose: 800 mg Simethicone (Mylicon Chew Tab) 40 mg PO QID PRN PRN Reason: gas retention/gas pain Tamsulosin HCl (Flomax) 0.4 mg PO DAILY [facility] Last Admin: 09/16/17 09:40 Dose: 0.4 mg Results - Vital Signs Recent Vital Signs: Last Vital Signs Temp 99.2 F 09/16/17 14:45 Pulse 82 09/16/17 13:32 Resp 16 09/16/17 13:32 BP 95/52 L 09/16/17 13:32 Pulse Ox 100 09/16/17 13:15 - Labs Result Diagrams: 09/16/17 06:22 09/16/17 06:22 Labs: Laboratory Results - last 24 hr 09/15/17 09/15/17 09/15/17 14:34 15:07 15:44 WBC RBC Hgb Hct MCV MCH MCHC RDW Plt Count MPV Neut % (Auto) Lymph % (Auto) [place] % (Auto) Eos % (Auto) Baso % (Auto) Neut # (Auto) Lymph # (Auto) [place] # (Auto) Eos # (Auto) Baso # (Auto) Neutrophils % (Manual) Band Neutrophils % Lymphocytes % (Manual) Monocytes % (Manual) Platelet Estimate Hypochromasia (manual) Poikilocytosis (manual Anisocytosis (manual) Target Cells APTT pO2 VBG pH VBG pCO2 VBG HCO3 VBG Total CO2 VBG O2 Sat (Calc) VBG Base Excess VBG Potassium Sodium Chloride Glucose Lactate Crit Value Called To Crit Value Called By Crit Value Read Back Blood Gas Notified Time Potassium Carbon Dioxide Anion Gap BUN Creatinine 7.8 H* Est GFR ( Amer) 8 Est GFR (Non-Af Amer) 7 POC Glucose (mg/dL) Random Glucose Hemoglobin A1c Calcium Phosphorus Magnesium Total Bilirubin AST ALT Alkaline Phosphatase Total Protein Albumin Globulin Albumin/Globulin Ratio Venous Blood Potassium Urine Color Colorless Urine Clarity Clear Urine pH 9.0 Ur Specific [place] 1.007 Urine Protein 3+ H Urine Glucose (UA) 2+ H Urine Ketones Negative Urine Blood Negative Urine Nitrate Negative Urine Bilirubin Negative Urine Urobilinogen Normal Ur Leukocyte Esterase Neg Urine WBC (Auto) < 1 Urine RBC (Auto) < 1 Ur Squamous Epith Cells < 1 Random Vancomycin Influenza Typ A,B (EIA) Negative for flu a/b Blood Type Blood Type Confirm Antibody Screen 09/15/17 09/15/17 09/16/17 17:17 20:51 06:01 WBC RBC Hgb Hct MCV MCH MCHC RDW Plt Count MPV Neut % (Auto) Lymph % (Auto) [place] % (Auto) Eos % (Auto) Baso % (Auto) Neut # (Auto) Lymph # (Auto) [place] # (Auto) Eos # (Auto) Baso # (Auto) Neutrophils % (Manual) Band Neutrophils % Lymphocytes % (Manual) Monocytes % (Manual) Platelet Estimate Hypochromasia (manual) Poikilocytosis (manual Anisocytosis (manual) Target Cells APTT pO2 29 L VBG pH 7.39 VBG pCO2 39 L VBG HCO3 22.8 VBG Total CO2 24.8 VBG O2 Sat (Calc) 64.5 VBG Base Excess -1.2 L VBG Potassium 3.0 L Sodium 133.0 Chloride 85.0 L Glucose 442 H* D Lactate 0.8 Crit Value Called To Dr mccain Crit Value Called By Dmitriy agarwal Crit Value Read Back Y Blood Gas Notified Time 1720 Potassium Carbon Dioxide Anion Gap BUN Creatinine Est GFR ( Amer) Est GFR (Non-Af Amer) POC Glucose (mg/dL) 130 H 130 H Random Glucose Hemoglobin A1c Calcium Phosphorus Magnesium Total Bilirubin AST ALT Alkaline Phosphatase Total Protein Albumin Globulin Albumin/Globulin Ratio Venous Blood Potassium 3.0 L Urine Color Urine Clarity Urine pH Ur Specific [place] Urine Protein Urine Glucose (UA) Urine Ketones Urine Blood Urine Nitrate Urine Bilirubin Urine Urobilinogen Ur Leukocyte Esterase Urine WBC (Auto) Urine RBC (Auto) Ur Squamous Epith Cells Random Vancomycin Influenza Typ A,B (EIA) Blood Type Blood Type Confirm Antibody Screen 09/16/17 09/16/17 09/16/17 06:22 06:22 06:22 WBC 11.2 H RBC 2.17 L Hgb 6.8 L Hct 20.2 L MCV 93.1 MCH 31.6 H MCHC 33.9 RDW 15.1 H Plt Count 190 MPV 7.4 Neut % (Auto) 94.6 H Lymph % (Auto) 1.9 L [place] % (Auto) 3.0 Eos % (Auto) 0.0 Baso % (Auto) 0.5 Neut # (Auto) 10.6 H Lymph # (Auto) 0.2 L [place] # (Auto) 0.3 Eos # (Auto) 0.0 Baso # (Auto) 0.1 Neutrophils % (Manual) 93 H Band Neutrophils % 2 Lymphocytes % (Manual) 3 L Monocytes % (Manual) 2 Platelet Estimate Normal Hypochromasia (manual) Moderate Poikilocytosis (manual Slight Anisocytosis (manual) Slight Target Cells Slight APTT pO2 VBG pH VBG pCO2 VBG HCO3 VBG Total CO2 VBG O2 Sat (Calc) VBG Base Excess VBG Potassium Sodium 139 Chloride 100 Glucose Lactate Crit Value Called To Crit Value Called By Crit Value Read Back Blood Gas Notified Time Potassium 4.7 Carbon Dioxide 23 Anion Gap 20 BUN 49 H Creatinine 8.5 H* Est GFR ( Amer) 7 Est GFR (Non-Af Amer) 6 POC Glucose (mg/dL) Random Glucose 111 H Hemoglobin A1c Calcium 9.1 Phosphorus 5.1 H Magnesium 1.8 Total Bilirubin 0.7 AST 23 ALT 17 L D Alkaline Phosphatase 54 Total Protein 5.7 L Albumin 3.3 L D Globulin 2.4 Albumin/Globulin Ratio 1.4 Venous Blood Potassium Urine Color Urine Clarity Urine pH Ur Specific [place] Urine Protein Urine Glucose (UA) Urine Ketones Urine Blood Urine Nitrate Urine Bilirubin Urine Urobilinogen Ur Leukocyte Esterase Urine WBC (Auto) Urine RBC (Auto) Ur Squamous Epith Cells Random Vancomycin 14.32 Influenza Typ A,B (EIA) Blood Type Blood Type Confirm Antibody Screen 09/16/17 09/16/17 09/16/17 06:22 06:22 08:26 WBC RBC Hgb Hct MCV MCH MCHC RDW Plt Count MPV Neut % (Auto) Lymph % (Auto) [place] % (Auto) Eos % (Auto) Baso % (Auto) Neut # (Auto) Lymph # (Auto) [place] # (Auto) Eos # (Auto) Baso # (Auto) Neutrophils % (Manual) Band Neutrophils % Lymphocytes % (Manual) Monocytes % (Manual) Platelet Estimate Hypochromasia (manual) Poikilocytosis (manual Anisocytosis (manual) Target Cells APTT 29 pO2 VBG pH VBG pCO2 VBG HCO3 VBG Total CO2 VBG O2 Sat (Calc) VBG Base Excess VBG Potassium Sodium Chloride Glucose Lactate Crit Value Called To Crit Value Called By Crit Value Read Back Blood Gas Notified Time Potassium Carbon Dioxide Anion Gap BUN Creatinine Est GFR ( Amer) Est GFR (Non-Af Amer) POC Glucose (mg/dL) Random Glucose Hemoglobin A1c 5.9 Calcium Phosphorus Magnesium Total Bilirubin AST ALT Alkaline Phosphatase Total Protein Albumin Globulin Albumin/Globulin Ratio Venous Blood Potassium Urine Color Urine Clarity Urine pH Ur Specific [place] Urine Protein Urine Glucose (UA) Urine Ketones Urine Blood Urine Nitrate Urine Bilirubin Urine Urobilinogen Ur Leukocyte Esterase Urine WBC (Auto) Urine RBC (Auto) Ur Squamous Epith Cells Random Vancomycin Influenza Typ A,B (EIA) Blood Type B POSITIVE Blood Type Confirm B POSITIVE Antibody Screen Negative 09/16/17 11:08 WBC RBC Hgb Hct MCV MCH MCHC RDW Plt Count MPV Neut % (Auto) Lymph % (Auto) [place] % (Auto) Eos % (Auto) Baso % (Auto) Neut # (Auto) Lymph # (Auto) [place] # (Auto) Eos # (Auto) Baso # (Auto) Neutrophils % (Manual) Band Neutrophils % Lymphocytes % (Manual) Monocytes % (Manual) Platelet Estimate Hypochromasia (manual) Poikilocytosis (manual Anisocytosis (manual) Target Cells APTT pO2 VBG pH VBG pCO2 VBG HCO3 VBG Total CO2 VBG O2 Sat (Calc) VBG Base Excess VBG Potassium Sodium Chloride Glucose Lactate Crit Value Called To Crit Value Called By Crit Value Read Back Blood Gas Notified Time Potassium Carbon Dioxide Anion Gap BUN Creatinine Est GFR ( Amer) Est GFR (Non-Af Amer) POC Glucose (mg/dL) 143 H Random Glucose Hemoglobin A1c Calcium Phosphorus Magnesium Total Bilirubin AST ALT Alkaline Phosphatase Total Protein Albumin Globulin Albumin/Globulin Ratio Venous Blood Potassium Urine Color Urine Clarity Urine pH Ur Specific [place] Urine Protein Urine Glucose (UA) Urine Ketones Urine Blood Urine Nitrate Urine Bilirubin Urine Urobilinogen Ur Leukocyte Esterase Urine WBC (Auto) Urine RBC (Auto) Ur Squamous Epith Cells Random Vancomycin Influenza Typ A,B (EIA) Blood Type Blood Type Confirm Antibody Screen
--- NOTE | 2017-09-16 17:12 | CP.PCM.CON ---
History of Present Illness - History of Present Illness History of Present Illness: Nephrology Consultation Note: Assessment: critical Sepsis likely permacath related infection Diabetic chronic Kidney Disease (E11.22) Hypertensive Chronic Kidney Disease (I12.0) End stage renal disease (N18.6) dependence on hemodialysis (Z99.2) (TTS) via permacath Anemia (D64.9), Hyperphosphatemia (E83.39), Secondary Hyperparathyroidism (E21.1 ), HTN (I12.0) Plan: Pt for HD today as ordered. Patient having shaking chills on dialysis likely due to bacteremia from infected Permacath, hence unable to complete treatment of dialysis. Recommend vasc surgery evaluation for permacath exchanged over the guidewire. If patient become hypotensive, then we'll need immediate permacath removal Will plan for dialysis, once patient has new dialysis catheter. Continue with Nephrovite 1 tab/day. PRBC as needed for anemia. On YOGI with HD as last Hb 6.8 Continue with phos binders home dose, last phos level 5.7 BP on the low side, hence no acei or ARB Glycemic control, Dialysis consistent diet Further work up/management as per primary team Dose meds/antibiotics for ESRD status. Avoid fleets enema/magnesium based laxatives. ID consult appreciated Thanks for allowing me to participate in care of your patient. Will follow patient with you. Please call if any Qs. d/w team Dr Constantino Jacobs Office: [phone] Chief Complaint;chills HPI: Pt is a 72 M with hx of ESRD on hemodialysis (TTS) via permacath, chronic anemia, hyperphosphatemia, secondary hyperparathyroidism, Diabetes Mellitus, hypertension presented with complaints of chills and fever, found to have Sepsis Patient was started on dialysis recently at another hospital. Also has maturing AV fistula left upper arm Renal consult requested for ESRD management. ROS: Cardiovascular: No chest pain. Pulmonary: No shortness of breath Gastrointestinal: denies abdominal pain No nausea. No vomiting. Genitourinary: No pain while urinating. Denies blood in urine. All other negative except as mentioned in HPI. Feels cold and have chills Physical Examination: Seen on dialysis General Appearance: uncomfortable, in no acute respiratory distress, co- operative . Patient having shaking chills Vitals reviewed and noted as below Head; Atraumatic, normocephalic ENT: no ulcers no thrush. Tongue is midline. Oropharynx: no rash or ulcers. EYES: Pupils are equal, round and reactive to light accommodation. Eye muscles and extraocular movement intact. Sclera is anicteric. Neck; supple no lymphadenopathy, no thyromegaly or bruit Lungs: Normal respiratory rate/effort. Breath sounds bilateral equal and clear Heart: Normal rate. s1s2 normal. No rub or gallop. Extremities: no edema. No varicose veins Neurological: Patient is alert, awake and oriented to person, place and time. No focal deficit. Strength bilateral appropriate and equal Skin: Warm and dry. Normal turgor. No rash. Palpitation: Normal elasticity for age Abdomen: Abdomen is soft. Bowel sounds +. There is no abdominal tenderness, no guarding/rigidity or organomegaly Psych: normal insight and normal affect/mood MSK: no joint tenderness or swelling. Digits and nails normal, no deformity : kidney or bladder not palpable Access: Right chest permacath. Left AV fistula maturing with good thrill and bruit Labs/imaging reviewed. Past medical history, past surgical history, family history, social history, allergy reviewed and noted as below Family Hx: no hx of CKD. Non contributory Blood culture positive for gram-positive cocci Past Patient History - Infectious Disease Hx of Infectious Diseases: None - Past Medical History & Family History Past Medical History?: Yes - Past Social History Smoking Status: Never Smoked - CARDIAC Hx Hypertension: Yes - PULMONARY Hx Respiratory Disorders: No - NEUROLOGICAL Hx Neurological Disorder: No - HEENT Hx Cataracts: Yes - RENAL Hx Chronic Kidney Disease: Yes - ENDOCRINE/METABOLIC Hx Diabetes Mellitus Type 2: Yes - HEMATOLOGICAL/ONCOLOGICAL Hx Blood Disorders: Yes Hx Anemia: Yes - INTEGUMENTARY Hx Dermatological Problems: No - MUSCULOSKELETAL/RHEUMATOLOGICAL Hx Falls: No - GASTROINTESTINAL Hx Gastrointestinal Disorders: No - GENITOURINARY/GYNECOLOGICAL Hx Prostate Problems: Yes - PSYCHIATRIC Hx Substance Use: No - SURGICAL HISTORY Hx Cholecystectomy: Yes - ANESTHESIA Hx Anesthesia: Yes Hx Anesthesia Reactions: No Meds Allergies/Adverse Reactions: Allergies Allergy/AdvReac Type Severity Reaction Status Date / Time No Known Allergies Allergy Verified 09/15/17 13:56 - Medications Medications: Current Medications Acetaminophen (Tylenol 325mg Tab) 650 mg PO Q6 PRN PRN Reason: Fever >100.4 F Last Admin: 09/16/17 13:15 Dose: 650 mg Ergocalciferol (Drisdol 50,000 Intl Units Cap) 1 cap PO QWK [facility] Heparin Sodium (Porcine) (Heparin) 5,000 units SC Q8 [facility] Last Admin: 09/16/17 05:41 Dose: 5,000 units Piperacillin Sod/Tazobactam Sod (Zosyn 2.25 Gm Iv Premix) 2.25 gm in 50 mls @ 100 mls/hr IVPB Q8H [facility] Last Admin: 09/16/17 16:57 Dose: 100 mls/hr Insulin Human Regular (Novolin R) 0 unit SC ACHS [facility] PRN Reason: Protocol Last Admin: 09/16/17 16:57 Dose: Not Given Ondansetron HCl (Zofran Inj) 4 mg IVP Q6 PRN PRN Reason: Nausea/Vomiting Last Admin: 09/16/17 08:01 Dose: 4 mg Pantoprazole Sodium (Protonix Inj) 40 mg IVP DAILY [facility] Last Admin: 09/16/17 09:40 Dose: 40 mg Sevelamer Carbonate (Renvela) 800 mg PO TID [facility] Last Admin: 09/16/17 17:01 Dose: 800 mg Simethicone (Mylicon Chew Tab) 40 mg PO QID PRN PRN Reason: gas retention/gas pain Tamsulosin HCl (Flomax) 0.4 mg PO DAILY [facility] Last Admin: 09/16/17 09:40 Dose: 0.4 mg Results - Vital Signs Recent Vital Signs: Last Vital Signs Temp 98.9 F 09/16/17 15:31 Pulse 92 H 09/16/17 15:44 Resp 20 09/16/17 15:31 BP 100/52 L 09/16/17 15:31 Pulse Ox 95 09/16/17 15:31 - Labs Result Diagrams: 09/16/17 06:22 09/16/17 06:22 Labs: Laboratory Results - last 24 hr 09/15/17 09/15/17 09/16/17 17:17 20:51 06:01 WBC RBC Hgb Hct MCV MCH MCHC RDW Plt Count MPV Neut % (Auto) Lymph % (Auto) [place] % (Auto) Eos % (Auto) Baso % (Auto) Neut # (Auto) Lymph # (Auto) [place] # (Auto) Eos # (Auto) Baso # (Auto) Neutrophils % (Manual) Band Neutrophils % Lymphocytes % (Manual) Monocytes % (Manual) Platelet Estimate Hypochromasia (manual) Poikilocytosis (manual Anisocytosis (manual) Target Cells APTT pO2 29 L VBG pH 7.39 VBG pCO2 39 L VBG HCO3 22.8 VBG Total CO2 24.8 VBG O2 Sat (Calc) 64.5 VBG Base Excess -1.2 L VBG Potassium 3.0 L Sodium 133.0 Chloride 85.0 L Glucose 442 H* D Lactate 0.8 Crit Value Called To Dr mccain Crit Value Called By Dmitriy agarwal Crit Value Read Back Y Blood Gas Notified Time 1720 Potassium Carbon Dioxide Anion Gap BUN Creatinine Est GFR ( Amer) Est GFR (Non-Af Amer) POC Glucose (mg/dL) 130 H 130 H Random Glucose Hemoglobin A1c Calcium Phosphorus Magnesium Total Bilirubin AST ALT Alkaline Phosphatase Total Protein Albumin Globulin Albumin/Globulin Ratio Venous Blood Potassium 3.0 L Random Vancomycin Blood Type Blood Type Confirm Antibody Screen 09/16/17 09/16/17 09/16/17 06:22 06:22 06:22 WBC 11.2 H RBC 2.17 L Hgb 6.8 L Hct 20.2 L MCV 93.1 MCH 31.6 H MCHC 33.9 RDW 15.1 H Plt Count 190 MPV 7.4 Neut % (Auto) 94.6 H Lymph % (Auto) 1.9 L [place] % (Auto) 3.0 Eos % (Auto) 0.0 Baso % (Auto) 0.5 Neut # (Auto) 10.6 H Lymph # (Auto) 0.2 L [place] # (Auto) 0.3 Eos # (Auto) 0.0 Baso # (Auto) 0.1 Neutrophils % (Manual) 93 H Band Neutrophils % 2 Lymphocytes % (Manual) 3 L Monocytes % (Manual) 2 Platelet Estimate Normal Hypochromasia (manual) Moderate Poikilocytosis (manual Slight Anisocytosis (manual) Slight Target Cells Slight APTT pO2 VBG pH VBG pCO2 VBG HCO3 VBG Total CO2 VBG O2 Sat (Calc) VBG Base Excess VBG Potassium Sodium 139 Chloride 100 Glucose Lactate Crit Value Called To Crit Value Called By Crit Value Read Back Blood Gas Notified Time Potassium 4.7 Carbon Dioxide 23 Anion Gap 20 BUN 49 H Creatinine 8.5 H* Est GFR ( Amer) 7 Est GFR (Non-Af Amer) 6 POC Glucose (mg/dL) Random Glucose 111 H Hemoglobin A1c Calcium 9.1 Phosphorus 5.1 H Magnesium 1.8 Total Bilirubin 0.7 AST 23 ALT 17 L D Alkaline Phosphatase 54 Total Protein 5.7 L Albumin 3.3 L D Globulin 2.4 Albumin/Globulin Ratio 1.4 Venous Blood Potassium Random Vancomycin 14.32 Blood Type Blood Type Confirm Antibody Screen 09/16/17 09/16/17 09/16/17 06:22 06:22 08:26 WBC RBC Hgb Hct MCV MCH MCHC RDW Plt Count MPV Neut % (Auto) Lymph % (Auto) [place] % (Auto) Eos % (Auto) Baso % (Auto) Neut # (Auto) Lymph # (Auto) [place] # (Auto) Eos # (Auto) Baso # (Auto) Neutrophils % (Manual) Band Neutrophils % Lymphocytes % (Manual) Monocytes % (Manual) Platelet Estimate Hypochromasia (manual) Poikilocytosis (manual Anisocytosis (manual) Target Cells APTT 29 pO2 VBG pH VBG pCO2 VBG HCO3 VBG Total CO2 VBG O2 Sat (Calc) VBG Base Excess VBG Potassium Sodium Chloride Glucose Lactate Crit Value Called To Crit Value Called By Crit Value Read Back Blood Gas Notified Time Potassium Carbon Dioxide Anion Gap BUN Creatinine Est GFR ( Amer) Est GFR (Non-Af Amer) POC Glucose (mg/dL) Random Glucose Hemoglobin A1c 5.9 Calcium Phosphorus Magnesium Total Bilirubin AST ALT Alkaline Phosphatase Total Protein Albumin Globulin Albumin/Globulin Ratio Venous Blood Potassium Random Vancomycin Blood Type B POSITIVE Blood Type Confirm B POSITIVE Antibody Screen Negative 09/16/17 09/16/17 11:08 16:44 WBC RBC Hgb Hct MCV MCH MCHC RDW Plt Count MPV Neut % (Auto) Lymph % (Auto) [place] % (Auto) Eos % (Auto) Baso % (Auto) Neut # (Auto) Lymph # (Auto) [place] # (Auto) Eos # (Auto) Baso # (Auto) Neutrophils % (Manual) Band Neutrophils % Lymphocytes % (Manual) Monocytes % (Manual) Platelet Estimate Hypochromasia (manual) Poikilocytosis (manual Anisocytosis (manual) Target Cells APTT pO2 VBG pH VBG pCO2 VBG HCO3 VBG Total CO2 VBG O2 Sat (Calc) VBG Base Excess VBG Potassium Sodium Chloride Glucose Lactate Crit Value Called To Crit Value Called By Crit Value Read Back Blood Gas Notified Time Potassium Carbon Dioxide Anion Gap BUN Creatinine Est GFR ( Amer) Est GFR (Non-Af Amer) POC Glucose (mg/dL) 143 H 133 H Random Glucose Hemoglobin A1c Calcium Phosphorus Magnesium Total Bilirubin AST ALT Alkaline Phosphatase Total Protein Albumin Globulin Albumin/Globulin Ratio Venous Blood Potassium Random Vancomycin Blood Type Blood Type Confirm Antibody Screen
--- NOTE | 2017-09-17 00:58 | CP.PCM.PN ---
<Rafael Garcia - Last Filed: 09/17/17 00:57> Subjective - Date & Time of Evaluation Date of Evaluation: 09/17/17 Time of Evaluation: 00:57 - Subjective Subjective: PGY-[address] Alexsander Ibrahim. No acute events noted overnight. Patient reports feeling better than yesterday. He did have an episode of clear vomit yesterday morning but is now tolerating his liquid diet. Patient also complaining of cough with clear sputum. Patient has no other complaints at this time. Objective - Vital Signs/Intake and Output Vital Signs (last 24 hours): Temp Pulse Resp BP Pulse Ox 98.4 F 86 20 105/60 99 09/16/17 23:00 09/16/17 23:00 09/16/17 23:00 09/16/17 23:00 09/16/17 23:00 Intake and Output: 09/16/17 09/17/17 18:59 06:59 Intake Total 355 Balance 355 - Medications Medications: Current Medications Acetaminophen (Tylenol 325mg Tab) 650 mg PO Q6 PRN PRN Reason: Fever >100.4 F Last Admin: 09/16/17 13:15 Dose: 650 mg Ergocalciferol (Drisdol 50,000 Intl Units Cap) 1 cap PO QWK [facility] Heparin Sodium (Porcine) (Heparin) 5,000 units SC Q8 [facility] Last Admin: 09/16/17 05:41 Dose: 5,000 units Piperacillin Sod/Tazobactam Sod (Zosyn 2.25 Gm Iv Premix) 2.25 gm in 50 mls @ 100 mls/hr IVPB Q8H [facility] Last Admin: 09/16/17 16:57 Dose: 100 mls/hr Insulin Human Regular (Novolin R) 0 unit SC ACHS [facility] PRN Reason: Protocol Last Admin: 09/16/17 21:46 Dose: Not Given Ondansetron HCl (Zofran Inj) 4 mg IVP Q6 PRN PRN Reason: Nausea/Vomiting Last Admin: 09/16/17 08:01 Dose: 4 mg Pantoprazole Sodium (Protonix Inj) 40 mg IVP DAILY [facility] Last Admin: 09/16/17 09:40 Dose: 40 mg Sevelamer Carbonate (Renvela) 800 mg PO TID [facility] Last Admin: 09/16/17 17:01 Dose: 800 mg Simethicone (Mylicon Chew Tab) 40 mg PO QID PRN PRN Reason: gas retention/gas pain Tamsulosin HCl (Flomax) 0.4 mg PO DAILY [facility] Last Admin: 09/16/17 09:40 Dose: 0.4 mg - Labs Labs: 09/16/17 06:22 09/16/17 06:22 PT 12.0 SECONDS (9.7-12.2) 09/15/17 14:34 INR 1.1 09/15/17 14:34 APTT 29 SECONDS (21-34) 09/16/17 06:22 - Additional Findings Additional findings: - Constitutional Appears: No Acute Distress - Head Exam Head Exam: ATRAUMATIC, NORMOCEPHALIC - Eye Exam Eye Exam: EOMI Pupil Exam: PERRL (reactive in right pupil but not left) - ENT Exam ENT Exam: Mucous Membranes Moist - Respiratory Exam Respiratory Exam: Rales. absent: Rhonchi, Wheezes Additional comments: Coarse breath sounds bilaterally - Cardiovascular Exam Cardiovascular Exam: Tachycardia, +S1, +S2 - GI/Abdominal Exam GI & Abdominal Exam: Normal Bowel Sounds, Soft. absent: Distended, Tenderness - Extremities Exam Extremities exam: Positive for: pedal pulses present. Negative for: pedal edema Additional comments: Left arm AV fistula with palpable bruits - Neurological Exam Neurological exam: Alert, CN II-XII Intact, Oriented x3 - Psychiatric Exam Psychiatric exam: Normal Affect, Normal Mood - Skin Skin Exam: Dry, Warm Additional comments: Right side chest permacath without any discharge or exudates. Assessment and Plan - Assessment and Plan (Free Text) Assessment: Sepsis--Possible infected Dialysis Catheter blood cultures grew gram positive cocci urine cultures negative Given Vancomycin and Zosyn in the ED ID consult, Dr. Meadows, help appreciated Per Dr. Meadows, one dose of Gentamicin 80 mg IV given in the ED Zosyn 2.25 gm Q8H Tylenol 650 mg PO Q6 prn fever Zofran 4 mg Q6 prn nausea/vomiting Vancomycin 1 gm IV given today after dialysis f/u blood cultures drawn through dialysis catheter Vascular surgery consult, Dr. Mccabe, help appreciated * dialysis catheter removed and a new one will be placed likely on Tuesday ESRD Originally scheduled HD , Nephro consult, Dr. Santos, help appreciated Resumed home Renvela 800 mg PO TID Will undergo dialysis after new catheter placed History of Hypertension Resumed home Norvasc 2.5 mg PO daily History of Anemia Likely of chronic disease Transfused 1 unit of pRBCs this morning History of Diabetes Patient is not on any medications Regular ISS-medium dose Accuchecks Hypogylcemic Treatment Protocol Hemoglobin A1c 5.9 History of Prostate CA Resumed home Flomax 0.4 mg PO daily Prophylaxis Liquid diet Heparin 5000 units SC Q8 Protonix 40 mg IV daily Simethicone <Devonte Ibrahim - Last Filed: 09/17/17 14:04> Objective - Vital Signs/Intake and Output Vital Signs (last 24 hours): Temp Pulse Resp BP Pulse Ox 98.9 F 74 97 H 98/48 L 97 09/17/17 07:57 09/17/17 12:16 09/17/17 07:57 09/17/17 07:57 09/17/17 07:57 - Medications Medications: Current Medications Acetaminophen (Tylenol 325mg Tab) 650 mg PO Q6 PRN PRN Reason: Fever >100.4 F Last Admin: 09/16/17 13:15 Dose: 650 mg Ergocalciferol (Drisdol 50,000 Intl Units Cap) 1 cap PO QWK [facility] Heparin Sodium (Porcine) (Heparin) 5,000 units SC Q8 [facility] Last Admin: 09/16/17 05:41 Dose: 5,000 units Piperacillin Sod/Tazobactam Sod (Zosyn 2.25 Gm Iv Premix) 2.25 gm in 50 mls @ 100 mls/hr IVPB Q8H [facility] Last Admin: 09/17/17 08:34 Dose: 100 mls/hr Gentamicin Sulfate 80 mg/ (Sodium Chloride) 102 mls @ 100 mls/hr IVPB ONCE ONE PRN Reason: Protocol Stop: 09/17/17 14:01 Last Admin: 09/17/17 12:39 Dose: 100 mls/hr Insulin Human Regular (Novolin R) 0 unit SC ACHS [facility] PRN Reason: Protocol Last Admin: 09/17/17 12:15 Dose: Not Given Ondansetron HCl (Zofran Inj) 4 mg IVP Q6 PRN PRN Reason: Nausea/Vomiting Last Admin: 09/16/17 08:01 Dose: 4 mg Pantoprazole Sodium (Protonix Inj) 40 mg IVP DAILY [facility] Last Admin: 09/17/17 10:12 Dose: 40 mg Sevelamer Carbonate (Renvela) 800 mg PO TID [facility] Last Admin: 09/17/17 13:27 Dose: 800 mg Simethicone (Mylicon Chew Tab) 40 mg PO QID PRN PRN Reason: gas retention/gas pain Tamsulosin HCl (Flomax) 0.4 mg PO DAILY [facility] Last Admin: 09/17/17 10:12 Dose: 0.4 mg - Labs Labs: 09/17/17 07:26 09/17/17 07:26 PT 12.0 SECONDS (9.7-12.2) 09/15/17 14:34 INR 1.1 09/15/17 14:34 APTT 29 SECONDS (21-34) 09/16/17 06:22 Attending/Attestation - Attestation I have personally seen and examined this patient.: Yes I have fully participated in the care of the patient.: Yes I have reviewed all pertinent clinical information, including history, physical exam and plan: Yes Notes (Text): 09/17/17 13:52 Patient was seen examined at 8:30 AM Also on ROS: NO n/v this morning NO chest pain/palpitations NO SOB/Wheezing (+) Cough that is dry and occurs occasionally NO abdominal pain Tolerating his diet Also on Exam: Left Arm AV Fistula (+) Thrill Assessments: 1). Sepsis Secondary to Likely Infected Right Chest PermaCath This was removed 09/16/17 Zosyn 2.25 gm IV Q8H Vancomycin 1 gm x 1 dose given and Vanco Trough is >23. F/U Vanco trough 09/19/17 Blood Culture 09/15/17 shows Gram (+) Cocci: await sensitivities Chest X Ray 09/15/17 showed mild cardiomegaly, mild pulmonary congestion, NO consolidation Urine Culture 09/15/17 NO growth 2). ESRD on HD T-Th-Sat Had last HD on Tuesday09/16/[address] Mccabe planning for new PermaCath Tuesday09/19/17: NPO after midnight 09/18/17 HD to occur 09/19/17 after new PermaCath placed Nephrology Dr. Santos is aware of plan Vitamin D 50,000 units PO Q7D Renvela 800 mg PO 3x/day 3). Hx HTN Norvasc 2.5 mg PO 1x/day is on HOLD because of low blood pressure 4). Anemia Likely Secondary to ESRD Procrit 10,000 x 1 dose 09/16/17 Had 1 unit PRBC on 09/16/17 due to low HgB/Hct and currently at 7.6/22 with NO complaints of tachycardia/palpitations/lightheadedness/dizziness 5). Hx DM 2 Novolin R ACHS 6). Hx Prostate CA S/P Seed Implants Flomax 0.4 mg PO 1x/day 7). Prophylaxis Tylenol 650 mg PO Q6H PRN Fever Zofran 4 mg IV Q6H PRN N/V Protonix 40 mg PO 1x/day HOLD Heparin secondary to the Anemia required PRBC on 09/16/17 Bilateral SCDs Devonte Ibrahim D.O.
[2017-09-17] MEDS: Piperacill/Tazo 2.25gm in Dex 2.25 GM/50 ML BAG IVPB SCH ×3 (01:00→17:00)
[2017-09-17 07:37] LABS: BASO % 0.8 % (0.0-2.0); EOS % 0.3 % (0.0-4.0); HEMOGLOBIN 7.6 g/dL (12.0-18.0); LYMPH # 0.5 K/uL (1.0-4.3); LYMPH % 8.3 % (20.0-40.0); MEAN CELL VOLUME 92.4 fL (80.0-94.0); MEAN CORPUSCULAR HEMOGLOBIN 31.8 pg (27.0-31.0); MEAN CORPUSCULAR HGB CONC 34.4 g/dL (33.0-37.0); MONO # 0.3 K/uL (0.0-0.8); MONO % 5.4 % (0.0-10.0); NEUT # 4.7 K/uL (1.8-7.0); NEUT % 85.2 % (50.0-75.0); NRBC % 0.1 % (0.0-2.0); PLATELET COUNT 170 K/uL (130-400); RBC 2.38 Mil/uL (4.40-5.90); RED CELL DISTRIBUTION WIDTH 15.4 % (11.5-14.5)
[2017-09-17] MEDS: (Novolin R) Insulin Human Regular 100 units/ml vial SC SCH ×4 (07:44→21:08)
[2017-09-17 07:45] LABS: WHITE BLOOD COUNT 5.5 K/uL (4.8-10.8)
--- NOTE | 2017-09-17 08:14 | CON ---
DATE: REQUESTING PHYSICIAN: Dr. Nicholas HISTORY OF PRESENT ILLNESS: This patient is a 72-year-old male. He has a history of hypertension, diabetes for many years, and end-stage renal disease. He just recently had catheter placed for dialysis which was placed on 09/01/2017 in [facility]. He is the patient of . He gets hemodialysis on Tuesdays, , and Saturdays. He also has prostate cancer and had seed implants done. He came in with fever and chills which started yesterday morning, and he recently received a new PermCath. He also had a left AV fistula placed which is there on his left arm at this time, and he received two sessions of dialysis outpatient and was supposed to get dialysis yesterday, but he missed this as he was having fever and chills and also was having nausea, vomiting, was having generalized malaise and weakness. When I saw him today, the catheter was already removed. He said he received a unit of blood, and after that they started to do dialysis but they were not successful in doing it and they removed the catheter as the blood cultures came out positive, and he has come with bacteremia, and there is no other likely source at this time. The patient was feeling little better and was sweating after the catheter was removed. He says he has never had sweating like this. PAST MEDICAL HISTORY: Significant for hypertension, diabetes, end-stage renal disease, gets dialysis on Tuesdays, , and Saturdays. He also received vancomycin 1 gm today that I was told by the nurse. He also has prostate cancer, status post seed implant. He has had a PermCath which is just discontinued today and has multiple left lower extremity orthopedic surgeries, left cataract surgery. ALLERGIES: HE IS NOT ALLERGIC TO ANY MEDICINES. SOCIAL HISTORY: Negative for smoking, drinking, or any drug abuse. FAMILY HISTORY: Mother had hypertension. No history of diabetes. MEDICATIONS: He is on Norvasc, Flomax, Renvela, and vitamin D. REVIEW OF SYSTEMS: He did come in with fever, chills, and generalized weakness. He denied any eye problem. No ear problems. No nasal congestion. No chest pain. No difficulty breathing. No shortness of breath. No cough. He did complain of constipation and did not have any chronic nausea and vomiting but he was feeling grummy yesterday. Denied any urinary symptoms. Denies any joint pains. No skin rashes. Neurologically, he was having generalized weakness. Endocrine ferro, he was fatigued and he suffers from diabetes. SOCIAL HISTORY: Negative for smoking or drinking. PAST MEDICAL HISTORY: As above. MEDICATIONS: He is on Tylenol, Drisdol, heparin subcutaneous, Novolin R, Zofran, Protonix, he was started. He did get vancomycin and he has been on Zosyn; and he is getting Renvela, Mylicon, and Flomax. PHYSICAL EXAMINATION: VITAL SIGNS: Temperature is 98.9, pulse 92, blood pressure 100/52, respirations are 20. HEENT: Head is atraumatic, normocephalic. Pupils are reacting to light. He was sweating profusely when I saw but denied any chest pain. There were dressings on the right chest wall, two areas where they have removed the catheter. NECK: Supple. LUNGS: Clear. No crackles or rales present. HEART: S1 and S2 regular. No murmurs appreciated. ABDOMEN: Soft. Nontender. No guarding. No rigidity present. EXTREMITIES: No edema, clubbing, or cyanosis. He has a fistula in the left arm which had bruise and may need to be evaluated by the prenatal nurse. LABORATORY DATA: Noted. Labs show white count of 10.8, hemoglobin 8.3, hematocrit 24.1. This is from yesterday. Platelet count of 241. Today's labs show white count 11.2, hemoglobin 6.8, hematocrit 20.2, platelet count of 190, and he received a unit of blood. His cultures I am told were all positive. Two sets were positive for gram-positive cocci. He is due to have vancomycin random level tomorrow, and he will need vancomycin 1 gm after the dialysis which I will place the order in. He remains on Zosyn at this time. We are waiting for the finalization of the cultures, and he will also need echocardiogram to rule out vegetation and we will follow. His chest x-ray was negative. IMPRESSION: Probably, it was catheter sepsis that gave him gram-positive cocci. He is a dialysis patient and it has been removed since, and we will wait for the cultures to finalize, and we will get echocardiogram to rule out endocarditis. We will follow with Renal and Primary. Shakira Meadows MD
[2017-09-17 08:18] LABS: ALB/GLOB RATIO 1.3 (1.0-2.1); ALBUMIN 3.1 g/dL (3.5-5.0); CALCIUM 9.1 mg/dl (8.6-10.4)
[2017-09-17 08:59] LABS: LYMPHOCYTE 9 % (20-40); MONOCYTE 13 % (0-10); NEUTROPHIL 78 % (50-75); TOTAL CELLS COUNTED 100
[2017-09-17 09:00] LABS: ANISOCYTOSIS SLIGHT; HYPOCHROMIC SLIGHT; PLATELET ESTIMATE NORMAL (NORMAL)
[2017-09-17 09:01] LABS: OVALOCYTES SLIGHT; POIKILOCYTOSIS SLIGHT; POLYCHROMIC SLIGHT
[2017-09-17] MEDS ORDERED: Glucagon Recombinant 1 mg Inj IM PRN (21:35)
[2017-09-17] MEDS ORDERED: Dextrose 50% SYRINGE Inj (50 ml) IV PRN (21:35)
[2017-09-18] MEDS: Piperacill/Tazo 2.25gm in Dex 2.25 GM/50 ML BAG IVPB SCH ×3 (00:16→17:00)
--- NOTE | 2017-09-18 01:51 | CP.PCM.PN ---
<Rafael Garcia - Last Filed: 09/18/17 01:49> Subjective - Date & Time of Evaluation Date of Evaluation: 09/18/17 Time of Evaluation: 01:49 - Subjective Subjective: PGY-[address] Jackson. No acute events noted overnight. Patient reports feeling better than yesterday. Tolerating diet. Patient has no other complaints at this time. Objective - Vital Signs/Intake and Output Vital Signs (last 24 hours): Temp Pulse Resp BP Pulse Ox 98.2 F 70 20 110/58 L 98 09/17/17 23:00 09/17/17 23:30 09/17/17 23:00 09/17/17 23:00 09/17/17 23:00 - Medications Medications: Current Medications Acetaminophen (Tylenol 325mg Tab) 650 mg PO Q6 PRN PRN Reason: Fever >100.4 F Last Admin: 09/16/17 13:15 Dose: 650 mg Dextrose (Dextrose 50% Inj) 0 ml IV STAT PRN; Protocol PRN Reason: Hypoglycemia Protocol Dextrose (Glutose 15) 0 gm PO ONCE PRN; Protocol PRN Reason: Hypoglycemia Protocol Ergocalciferol (Drisdol 50,000 Intl Units Cap) 1 cap PO QWK [facility] Glucagon (Glucagen Diagnostic Kit) 0 mg IM STAT PRN; Protocol PRN Reason: Hypoglycemia Protocol Heparin Sodium (Porcine) (Heparin) 5,000 units SC Q8 [facility] Last Admin: 09/16/17 05:41 Dose: 5,000 units Piperacillin Sod/Tazobactam Sod (Zosyn 2.25 Gm Iv Premix) 2.25 gm in 50 mls @ 100 mls/hr IVPB Q8H [facility] Last Admin: 09/18/17 00:16 Dose: 100 mls/hr Dextrose (Dextrose 5% In Water 1000 Ml) 1,000 mls @ 0 mls/hr IV .Q0M PRN; Protocol; Per Protocol PRN Reason: Hypoglycemia Protocol Insulin Human Regular (Novolin R) 0 unit SC ACHS [facility] PRN Reason: Protocol Last Admin: 09/17/17 21:08 Dose: Not Given Ondansetron HCl (Zofran Inj) 4 mg IVP Q6 PRN PRN Reason: Nausea/Vomiting Last Admin: 09/16/17 08:01 Dose: 4 mg Pantoprazole Sodium (Protonix Inj) 40 mg IVP DAILY [facility] Last Admin: 09/17/17 10:12 Dose: 40 mg Sevelamer Carbonate (Renvela) 800 mg PO TID [facility] Last Admin: 09/17/17 17:37 Dose: 800 mg Simethicone (Mylicon Chew Tab) 40 mg PO QID PRN PRN Reason: gas retention/gas pain Tamsulosin HCl (Flomax) 0.4 mg PO DAILY [facility] Last Admin: 09/17/17 10:12 Dose: 0.4 mg - Labs Labs: 09/17/17 07:26 09/17/17 07:26 PT 12.0 SECONDS (9.7-12.2) 09/15/17 14:34 INR 1.1 09/15/17 14:34 APTT 29 SECONDS (21-34) 09/16/17 06:22 - Additional Findings Additional findings: - Constitutional Appears: No Acute Distress - Head Exam Head Exam: ATRAUMATIC, NORMOCEPHALIC - Eye Exam Eye Exam: EOMI Pupil Exam: PERRL (reactive in right pupil but not left) - ENT Exam ENT Exam: Mucous Membranes Moist - Respiratory Exam Respiratory Exam: Rales. absent: Rhonchi, Wheezes Additional comments: Coarse breath sounds bilaterally - Cardiovascular Exam Cardiovascular Exam: Tachycardia, +S1, +S2 - GI/Abdominal Exam GI & Abdominal Exam: Normal Bowel Sounds, Soft. absent: Distended, Tenderness - Extremities Exam Extremities exam: Positive for: pedal pulses present. Negative for: pedal edema Additional comments: Left arm AV fistula with palpable bruits - Neurological Exam Neurological exam: Alert, CN II-XII Intact, Oriented x3 - Psychiatric Exam Psychiatric exam: Normal Affect, Normal Mood - Skin Skin Exam: Dry, Warm Additional comments: Right side chest permacath without any discharge or exudates. Assessment and Plan - Assessment and Plan (Free Text) Assessment: 1). Sepsis Secondary to Likely Infected Right Chest PermaCath This was removed 09/16/17 Zosyn 2.25 gm IV Q8H Vancomycin 1 gm x 1 dose given and Vanco Trough is >23. F/U Vanco trough 09/19/17 Blood Culture 09/15/17 shows Gram (+) Cocci: await sensitivities Chest X Ray 09/15/17 showed mild cardiomegaly, mild pulmonary congestion, NO consolidation Urine Culture 09/15/17 NO growth 2). ESRD on HD T--Tue Had last HD on Tuesday09/16/[address] Mccabe planning for new PermaCath Tuesday09/19/17: NPO after midnight 09/18/17 HD to occur 09/19/17 after new PermaCath placed Nephrology Dr. Santos is aware of plan Vitamin D 50,000 units PO Q7D Ren[facility] 800 mg PO 3x/day 3). Hx HTN Norvasc 2.5 mg PO 1x/day is on HOLD because of low blood pressure 4). Anemia Likely Secondary to ESRD Procrit 10,000 x 1 dose 09/16/17 Had 1 unit PRBC on 09/16/17 due to low HgB/Hct and currently at 7.6/22 with NO complaints of tachycardia/palpitations/lightheadedness/dizziness 5). Hx DM 2 Novolin R ACHS 6). Hx Prostate CA S/P [employer] Flomax 0.4 mg PO 1x/day 7). Prophylaxis Tylenol 650 mg PO Q6H PRN Fever Zofran 4 mg IV Q6H PRN N/V Protonix 40 mg PO 1x/day HOLD Heparin secondary to the Anemia required PRBC on 09/16/17 Bilateral SCDs <Mayank Jackson H - Last Filed: 09/18/17 09:10> Objective - Vital Signs/Intake and Output Vital Signs (last 24 hours): Temp Pulse Resp BP Pulse Ox 97.9 F 75 20 111/65 97 09/18/17 08:23 09/18/17 08:23 09/18/17 08:23 09/18/17 08:23 09/18/17 08:23 - Medications Medications: Current Medications Acetaminophen (Tylenol 325mg Tab) 650 mg PO Q6 PRN PRN Reason: Fever >100.4 F Last Admin: 09/16/17 13:15 Dose: 650 mg Dextrose (Dextrose 50% Inj) 0 ml IV STAT PRN; Protocol PRN Reason: Hypoglycemia Protocol Dextrose (Glutose 15) 0 gm PO ONCE PRN; Protocol PRN Reason: Hypoglycemia Protocol Ergocalciferol (Drisdol 50,000 Intl Units Cap) 1 cap PO QWK [facility] Glucagon (Glucagen Diagnostic Kit) 0 mg IM STAT PRN; Protocol PRN Reason: Hypoglycemia Protocol Heparin Sodium (Porcine) (Heparin) 5,000 units SC Q8 [facility] Last Admin: 09/16/17 05:41 Dose: 5,000 units Piperacillin Sod/Tazobactam Sod (Zosyn 2.25 Gm Iv Premix) 2.25 gm in 50 mls @ 100 mls/hr IVPB Q8H [facility] Last Admin: 09/18/17 08:46 Dose: 100 mls/hr Dextrose (Dextrose 5% In Water 1000 Ml) 1,000 mls @ 0 mls/hr IV .Q0M PRN; Protocol; Per Protocol PRN Reason: Hypoglycemia Protocol Insulin Human Regular (Novolin R) 0 unit SC ACHS [facility] PRN Reason: Protocol Last Admin: 09/18/17 07:05 Dose: Not Given Ondansetron HCl (Zofran Inj) 4 mg IVP Q6 PRN PRN Reason: Nausea/Vomiting Last Admin: 09/16/17 08:01 Dose: 4 mg Pantoprazole Sodium (Protonix Inj) 40 mg IVP DAILY [facility] Last Admin: 09/17/17 10:12 Dose: 40 mg Sevelamer Carbonate (Renvela) 800 mg PO TID [facility] Last Admin: 09/17/17 17:37 Dose: 800 mg Simethicone (Mylicon Chew Tab) 40 mg PO QID PRN PRN Reason: gas retention/gas pain Tamsulosin HCl (Flomax) 0.4 mg PO DAILY [facility] Last Admin: 09/17/17 10:12 Dose: 0.4 mg - Labs Labs: 09/18/17 07:27 09/18/17 07:27 PT 12.0 SECONDS (9.7-12.2) 09/15/17 14:34 INR 1.1 09/15/17 14:34 APTT 29 SECONDS (21-34) 09/16/17 06:22 Attending/Attestation - Attestation I have personally seen and examined this patient.: Yes I have fully participated in the care of the patient.: Yes I have reviewed all pertinent clinical information, including history, physical exam and plan: Yes Notes (Text): 09/18/17 09:05 Medical attending: Patient was seen and examined by me. Agree with the above note by the resident The patient was not in any acute distress when I saw him. He was answering questions appropriately He reported no chest pain, no shortness of breath, no fevers or chills. He reported the fevers and chills had resolved. He had removal of R permacath 09/16 since it was suspected to be source of infection. There is a + gram positive cocci on 09/15 and he has been receiving Vancomycin and Zosyn. Patient is pending new dialysis cathter tomorrow. He is medically cleared for surgery tomorrow. Mayank Jackson
[2017-09-18] MEDS: (Novolin R) Insulin Human Regular 100 units/ml vial SC SCH ×4 (07:05→21:21)
[2017-09-18 07:51] LABS: BASO # 0.1 K/uL (0.0-0.2); BASO % 1.4 % (0.0-2.0); EOS % 0.8 % (0.0-4.0); HEMOGLOBIN 7.5 g/dL (12.0-18.0); LYMPH # 0.6 K/uL (1.0-4.3); LYMPH % 14.5 % (20.0-40.0); MEAN CELL VOLUME 92.9 fL (80.0-94.0); MEAN CORPUSCULAR HEMOGLOBIN 30.7 pg (27.0-31.0); MEAN PLATELET VOLUME 8.4 fL (7.2-11.7); MONO # 0.3 K/uL (0.0-0.8); MONO % 7.8 % (0.0-10.0); NEUT # 3.3 K/uL (1.8-7.0); NEUT % 75.5 % (50.0-75.0); RBC 2.45 Mil/uL (4.40-5.90); WHITE BLOOD COUNT 4.3 K/uL (4.8-10.8)
[2017-09-18 08:10] LABS: ALB/GLOB RATIO 1.3 (1.0-2.1); ALBUMIN 3.2 g/dL (3.5-5.0); CALCIUM 9.1 mg/dl (8.6-10.4)
--- NOTE | 2017-09-18 08:58 | CP.PCM.PN ---
Subjective - Date & Time of Evaluation Date of Evaluation: 09/18/17 Time of Evaluation: 08:30 - Subjective Subjective: Vascular surgery progress note for Dr. Carl Grimm, PGY-1 Pt S & E at bedside. Pt reports no problems overnight. Denies N & V, F & C. Objective - Vital Signs/Intake and Output Vital Signs (last 24 hours): Temp Pulse Resp BP Pulse Ox 97.9 F 75 20 111/65 97 09/18/17 08:23 09/18/17 08:23 09/18/17 08:23 09/18/17 08:23 09/18/17 08:23 - Medications Medications: Current Medications Acetaminophen (Tylenol 325mg Tab) 650 mg PO Q6 PRN PRN Reason: Fever >100.4 F Last Admin: 09/16/17 13:15 Dose: 650 mg Dextrose (Dextrose 50% Inj) 0 ml IV STAT PRN; Protocol PRN Reason: Hypoglycemia Protocol Dextrose (Glutose 15) 0 gm PO ONCE PRN; Protocol PRN Reason: Hypoglycemia Protocol Ergocalciferol (Drisdol 50,000 Intl Units Cap) 1 cap PO QWK [facility] Glucagon (Glucagen Diagnostic Kit) 0 mg IM STAT PRN; Protocol PRN Reason: Hypoglycemia Protocol Heparin Sodium (Porcine) (Heparin) 5,000 units SC Q8 [facility] Last Admin: 09/16/17 05:41 Dose: 5,000 units Piperacillin Sod/Tazobactam Sod (Zosyn 2.25 Gm Iv Premix) 2.25 gm in 50 mls @ 100 mls/hr IVPB Q8H [facility] Last Admin: 09/18/17 08:46 Dose: 100 mls/hr Dextrose (Dextrose 5% In Water 1000 Ml) 1,000 mls @ 0 mls/hr IV .Q0M PRN; Protocol; Per Protocol PRN Reason: Hypoglycemia Protocol Insulin Human Regular (Novolin R) 0 unit SC ACHS [facility] PRN Reason: Protocol Last Admin: 09/18/17 07:05 Dose: Not Given Ondansetron HCl (Zofran Inj) 4 mg IVP Q6 PRN PRN Reason: Nausea/Vomiting Last Admin: 09/16/17 08:01 Dose: 4 mg Pantoprazole Sodium (Protonix Inj) 40 mg IVP DAILY [facility] Last Admin: 09/17/17 10:12 Dose: 40 mg Sevelamer Carbonate (Renvela) 800 mg PO TID [facility] Last Admin: 09/17/17 17:37 Dose: 800 mg Simethicone (Mylicon Chew Tab) 40 mg PO QID PRN PRN Reason: gas retention/gas pain Tamsulosin HCl (Flomax) 0.4 mg PO DAILY [facility] Last Admin: 09/17/17 10:12 Dose: 0.4 mg - Labs Labs: 09/18/17 07:27 09/18/17 07:27 PT 12.0 SECONDS (9.7-12.2) 09/15/17 14:34 INR 1.1 09/15/17 14:34 APTT 29 SECONDS (21-34) 09/16/17 06:22 - Constitutional Appears: Non-toxic, No Acute Distress - Head Exam Head Exam: ATRAUMATIC, NORMAL INSPECTION, NORMOCEPHALIC - Eye Exam Eye Exam: EOMI, Normal appearance - ENT Exam ENT Exam: Mucous Membranes Moist, Normal Exam - Neck Exam Neck Exam: Full ROM, Normal Inspection - Respiratory Exam Respiratory Exam: NORMAL BREATHING PATTERN. absent: Chest Wall Tenderness ( Right chest wall dressings in place- clean/dry/intact) - Cardiovascular Exam Cardiovascular Exam: REGULAR RHYTHM - GI/Abdominal Exam GI & Abdominal Exam: Soft. absent: Tenderness - Extremities Exam Extremities Exam: absent: Normal Inspection (Left AVF with palpable thrill, palpable radial and ulnar pulses, no temperature differentials noted), Pedal Edema - Neurological Exam Neurological Exam: Alert, Awake, CN II-XII Intact, Oriented x3 - Psychiatric Exam Psychiatric exam: Normal Affect, Normal Mood - Skin Skin Exam: Dry, Intact, Normal Color, Warm Assessment and Plan - Assessment and Plan (Free Text) Assessment: 72M w/ESRD s/p removal of infected permacath, continuing to require HD Plan: Plan for OR 4/2 Cont IV Abx Consent in chart NPO pMN Hold anticoagulation Further mgmt as per primary team Sirisha, PGY-1
--- NOTE | 2017-09-18 15:40 | CP.PCM.PN ---
Subjective - Date & Time of Evaluation Date of Evaluation: 09/18/17 Time of Evaluation: 03:00 - Subjective Subjective: DICTATED Objective - Vital Signs/Intake and Output Vital Signs (last 24 hours): Temp Pulse Resp BP Pulse Ox 97.5 F L 76 20 113/65 98 09/18/17 15:29 09/18/17 15:29 09/18/17 15:29 09/18/17 15:29 09/18/17 15:29 - Medications Medications: Current Medications Acetaminophen (Tylenol 325mg Tab) 650 mg PO Q6 PRN PRN Reason: Fever >100.4 F Last Admin: 09/16/17 13:15 Dose: 650 mg Dextrose (Dextrose 50% Inj) 0 ml IV STAT PRN; Protocol PRN Reason: Hypoglycemia Protocol Dextrose (Glutose 15) 0 gm PO ONCE PRN; Protocol PRN Reason: Hypoglycemia Protocol Ergocalciferol (Drisdol 50,000 Intl Units Cap) 1 cap PO QWK [facility] Glucagon (Glucagen Diagnostic Kit) 0 mg IM STAT PRN; Protocol PRN Reason: Hypoglycemia Protocol Heparin Sodium (Porcine) (Heparin) 5,000 units SC Q8 [facility] Last Admin: 09/16/17 05:41 Dose: 5,000 units Piperacillin Sod/Tazobactam Sod (Zosyn 2.25 Gm Iv Premix) 2.25 gm in 50 mls @ 100 mls/hr IVPB Q8H [facility] Last Admin: 09/18/17 08:46 Dose: 100 mls/hr Dextrose (Dextrose 5% In Water 1000 Ml) 1,000 mls @ 0 mls/hr IV .Q0M PRN; Protocol; Per Protocol PRN Reason: Hypoglycemia Protocol Vancomycin HCl 1 gm/ Sodium (Chloride) 250 mls @ 167 mls/hr IVPB TTS [facility] PRN Reason: Protocol Insulin Human Regular (Novolin R) 0 unit SC ACHS [facility] PRN Reason: Protocol Last Admin: 09/18/17 14:42 Dose: Not Given Ondansetron HCl (Zofran Inj) 4 mg IVP Q6 PRN PRN Reason: Nausea/Vomiting Last Admin: 09/16/17 08:01 Dose: 4 mg Pantoprazole Sodium (Protonix Inj) 40 mg IVP DAILY [facility] Last Admin: 09/18/17 09:36 Dose: 40 mg Sevelamer Carbonate (Renvela) 800 mg PO TID [facility] Last Admin: 09/18/17 14:42 Dose: 800 mg Simethicone (Mylicon Chew Tab) 40 mg PO QID PRN PRN Reason: gas retention/gas pain Tamsulosin HCl (Flomax) 0.4 mg PO DAILY [facility] Last Admin: 09/18/17 09:36 Dose: 0.4 mg - Labs Labs: 09/18/17 07:27 09/18/17 07:27 PT 12.0 SECONDS (9.7-12.2) 09/15/17 14:34 INR 1.1 09/15/17 14:34 APTT 29 SECONDS (21-34) 09/16/17 06:22
--- NOTE | 2017-09-18 15:53 | CARD ---
APPROVED REPORT EXAM: Two-dimensional and M-mode echocardiogram with Doppler and color Doppler. Other Information Quality : GoodRhythm : INDICATION ELEVATED BNP RISK FACTORS Hypertension Diabetes 2D DIMENSIONS IVSd1.1 (0.7-1.1cm)Aortic Root (2D)3.5 (2.0-3.7cm) LVDd5.3 (3.9-5.9cm)PWd1.2 (0.7-1.1cm) LVDs3.5 (2.5-4.0cm)FS (%) 33.4 % LVEF (%)61.6 (>50%) Aortic Valve AI P 1/2 [id number] Mitral Valve MV E Hjryjjym469.7cm/sMV A Obisvraj99.2cm/sE/A ratio1.1 TDI E/Lateral E'0.0E/Medial E'0.0 Tricuspid Valve TR Peak [id number]/sTR Peak [id number] LEFT VENTRICLE The left ventricle is normal size. There is normal left ventricular wall thickness. The left ventricular function is normal. The left ventricular ejection fraction is within the normal range. No regional wall motion abnormalities noted. LV filling pressure is mildly elevated , with normal LV EF denotes diastolic HF No left ventricle thrombus noted on this study. There is no ventricular septal defect visualized. There is no left ventricular aneurysm. There is no mass noted in the left ventricle. RIGHT VENTRICLE The right ventricle is normal size. There is normal right ventricular wall thickness. The right ventricular systolic function is normal. ATRIA The left atrium is mildly dilated. The right atrium size is normal. The interatrial septum is intact with no evidence for an atrial septal defect. AORTIC VALVE The aortic valve is normal in structure and function. There is mild to moderate aortic regurgitation. There is no aortic valvular stenosis. There is no aortic valvular vegetation. MITRAL VALVE The mitral valve is normal in structure and function. There is no evidence of mitral valve prolapse. There is no mitral valve stenosis. Mitral regurgitation is mild. TRICUSPID VALVE The tricuspid valve is normal in structure and function. There is mild tricuspid regurgitation. Right ventricular systolic pressure is estimated at 30-40 mmHg. There is no tricuspid valve prolapse or vegetation. There is no tricuspid valve stenosis. PULMONIC VALVE The pulmonary valve is normal in structure and function. There is no pulmonic valvular regurgitation. There is no pulmonic valvular stenosis. GREAT VESSELS The aortic root is normal in size. The ascending aorta is normal in size. The pulmonary artery is normal. The IVC is normal in size and collapses >50% with inspiration. PERICARDIAL EFFUSION The pericardium appears normal. There is no pleural effusion. <Conclusion> The left ventricular function is normal. The left ventricular ejection fraction is within the normal range. No regional wall motion abnormalities noted. LV filling pressure is mildly elevated , with normal LV EF denotes diastolic HF The left atrium is mildly dilated. There is mild to moderate aortic regurgitation. Mitral regurgitation is mild.
--- NOTE | 2017-09-18 20:34 | CP.PCM.PN ---
Subjective - Date & Time of Evaluation Date of Evaluation: 09/18/17 Time of Evaluation: 20:28 - Subjective Subjective: Nephrology Consultation Note: Assessment: critical Sepsis likely permacath related infection Diabetic chronic Kidney Disease (E11.22) Hypertensive Chronic Kidney Disease (I12.0) End stage renal disease (N18.6) dependence on hemodialysis (Z99.2) (TTS) via permacath Anemia (D64.9), Hyperphosphatemia (E83.39), Secondary Hyperparathyroidism (E21.1 ), HTN (I12.0) Plan: Plan for HD tomorrow after permcath placed mointor AVG in left upper arm Continue with Nephrovite 1 tab/day. PRBC as needed for anemia. On YOGI Continue with phos binders monitor bp dose meds for ESRD f/u ID S: seen and examined, feels good Physical Examination: General Appearance: no respiratory distress . Vitals reviewed and noted as below Head; Atraumatic, normocephalic ENT: no ulcers no thrush. Tongue is midline. Oropharynx: no rash or ulcers. EYES: Pupils are equal, round and reactive to light accommodation. Eye muscles and extraocular movement intact. Sclera is anicteric. Neck; supple no lymphadenopathy, no thyromegaly or bruit Lungs: Normal respiratory rate/effort. Breath sounds bilateral equal and clear Heart: Normal rate. s1s2 normal. No rub or gallop. Extremities: no edema. No varicose veins Neurological: Patient is alert, awake and oriented to person, place and time. No focal deficit. Strength bilateral appropriate and equal Skin: Warm and dry. Normal turgor. No rash. Palpitation: Normal elasticity for age Abdomen: Abdomen is soft. Bowel sounds +. There is no abdominal tenderness, no guarding/rigidity or organomegaly Psych: normal insight and normal affect/mood MSK: no joint tenderness or swelling. Digits and nails normal, no deformity : kidney or bladder not palpable Access: Left AVG w/ good thrill Labs/imaging reviewed. Past medical history, past surgical history, family history, social history, allergy reviewed and noted as below Family Hx: no hx of CKD. Non contributory Objective - Vital Signs/Intake and Output Vital Signs (last 24 hours): Temp Pulse Resp BP Pulse Ox 97.5 F L 75 20 113/65 98 09/18/17 15:29 09/18/17 16:23 09/18/17 15:29 09/18/17 15:29 09/18/17 15:29 - Medications Medications: Current Medications Acetaminophen (Tylenol 325mg Tab) 650 mg PO Q6 PRN PRN Reason: Fever >100.4 F Last Admin: 09/16/17 13:15 Dose: 650 mg Dextrose (Dextrose 50% Inj) 0 ml IV STAT PRN; Protocol PRN Reason: Hypoglycemia Protocol Dextrose (Glutose 15) 0 gm PO ONCE PRN; Protocol PRN Reason: Hypoglycemia Protocol Ergocalciferol (Drisdol 50,000 Intl Units Cap) 1 cap PO QWK [facility] Glucagon (Glucagen Diagnostic Kit) 0 mg IM STAT PRN; Protocol PRN Reason: Hypoglycemia Protocol Heparin Sodium (Porcine) (Heparin) 5,000 units SC Q8 [facility] Last Admin: 09/16/17 05:41 Dose: 5,000 units Piperacillin Sod/Tazobactam Sod (Zosyn 2.25 Gm Iv Premix) 2.25 gm in 50 mls @ 100 mls/hr IVPB Q8H [facility] Last Admin: 09/18/17 17:00 Dose: 100 mls/hr Dextrose (Dextrose 5% In Water 1000 Ml) 1,000 mls @ 0 mls/hr IV .Q0M PRN; Protocol; Per Protocol PRN Reason: Hypoglycemia Protocol Vancomycin/Sodium Chloride (Vancomycin 1 Gm/Ns 200 Ml) 1 gm in 200 mls @ 167 mls/hr IVPB TTS [facility] PRN Reason: Protocol Stop: 09/25/17 10:01 Insulin Human Regular (Novolin R) 0 unit SC ACHS [facility] PRN Reason: Protocol Last Admin: 09/18/17 16:46 Dose: Not Given Ondansetron HCl (Zofran Inj) 4 mg IVP Q6 PRN PRN Reason: Nausea/Vomiting Last Admin: 09/16/17 08:01 Dose: 4 mg Pantoprazole Sodium (Protonix Inj) 40 mg IVP DAILY [facility] Last Admin: 09/18/17 09:36 Dose: 40 mg Sevelamer Carbonate (Renvela) 800 mg PO TID [facility] Last Admin: 09/18/17 17:19 Dose: 800 mg Simethicone (Mylicon Chew Tab) 40 mg PO QID PRN PRN Reason: gas retention/gas pain Tamsulosin HCl (Flomax) 0.4 mg PO DAILY [facility] Last Admin: 09/18/17 09:36 Dose: 0.4 mg - Labs Labs: 09/18/17 07:27 09/18/17 07:27 PT 12.0 SECONDS (9.7-12.2) 09/15/17 14:34 INR 1.1 09/15/17 14:34 APTT 29 SECONDS (21-34) 09/16/17 06:22
--- NOTE | 2017-09-18 22:29 | PN ---
DATE: INFECTIOUS DISEASE FOLLOWUP SUBJECTIVE: The patient is feeling better. He did show me that in his left axilla, there was Steri-Strip, and there was an old dressing which was fitted from 09/01/2017 has been there, and it had dried blood on it but the Steri-Strips were intact. There was no sign of infection. However, he did have that from 09/01/2017, so I removed it and he says the fistula is there, but he is not sure if it is working. The catheter was removed. PHYSICAL EXAMINATION: VITAL SIGNS: T-max is 97.5, pulse 76, blood pressure 113/65, respirations are 20. GENERAL: Today, he ate and felt a little better. His was there. HEENT: Unremarkable. NECK: Supple. LUNGS: Clear. HEART: S1 and S2 regular. ABDOMEN: Soft, nontender. No guarding, no rigidity present. EXTREMITIES: No edema. LABORATORY DATA: Show white count is 4.3, hemoglobin 7.5, hematocrit 22.8, platelet count is 162, so he is anemic, and his vanco random today was 20.48. Blood cultures have come out to be Enterococcus and repeat cultures are negative. I am not sure about the catheter tip as I have not seen. It was removed and enterococcus is vancomycin sensitive and sensitive to ampicillin, less than 2 sensitivities to ampicillin, so we will continue with the Zosyn at this time and we will see if he needs another. We will follow with the Vascular. Blood cultures are Enterococcus and they are improving, they are negative. It will all depend whether he needs dialysis catheter or he can continue with vancomycin on dialysis. I am also waiting for the echocardiogram report to rule out vegetation at this time. He has no abdominal symptoms. We are not doing any further workup, and it is assumed that Enterococcus was due to the catheter. He has end-stage renal disease and is anemic, and we will follow. Shakira Meadows MD
[2017-09-19] MEDS: (Novolin R) Insulin Human Regular 100 units/ml vial SC SCH ×4 (07:15→21:42)
--- NOTE | 2017-09-19 07:25 | CP.PCM.PN ---
<Johan Davis - Last Filed: 09/19/17 16:33> Subjective - Date & Time of Evaluation Date of Evaluation: 09/19/17 Time of Evaluation: 07:00 - Subjective Subjective: Medicine progress note for Dr. Jackson Patient seen and examined. Patient reports feeling well this morning however he did have 6 bouts of watery stools in total yesterday. Patient is for OR today for new dialysis catheter and will undergo hemodialysis later today as well. Objective - Vital Signs/Intake and Output Vital Signs (last 24 hours): Temp Pulse Resp BP Pulse Ox 98 F 78 20 109/55 L 98 09/19/17 04:22 09/19/17 04:22 09/19/17 04:22 09/19/17 04:22 09/18/17 23:05 - Medications Medications: Current Medications Acetaminophen (Tylenol 325mg Tab) 650 mg PO Q6 PRN PRN Reason: Fever >100.4 F Last Admin: 09/16/17 13:15 Dose: 650 mg Dextrose (Dextrose 50% Inj) 0 ml IV STAT PRN; Protocol PRN Reason: Hypoglycemia Protocol Dextrose (Glutose 15) 0 gm PO ONCE PRN; Protocol PRN Reason: Hypoglycemia Protocol Ergocalciferol (Drisdol 50,000 Intl Units Cap) 1 cap PO QWK [facility] Glucagon (Glucagen Diagnostic Kit) 0 mg IM STAT PRN; Protocol PRN Reason: Hypoglycemia Protocol Heparin Sodium (Porcine) (Heparin) 5,000 units SC Q8 [facility] Last Admin: 09/16/17 05:41 Dose: 5,000 units Piperacillin Sod/Tazobactam Sod (Zosyn 2.25 Gm Iv Premix) 2.25 gm in 50 mls @ 100 mls/hr IVPB Q8H [facility] Last Admin: 09/19/17 00:00 Dose: 100 mls/hr Dextrose (Dextrose 5% In Water 1000 Ml) 1,000 mls @ 0 mls/hr IV .Q0M PRN; Protocol; Per Protocol PRN Reason: Hypoglycemia Protocol Vancomycin/Sodium Chloride (Vancomycin 1 Gm/Ns 200 Ml) 1 gm in 200 mls @ 167 mls/hr IVPB TTS [facility] PRN Reason: Protocol Stop: 09/25/17 10:01 Insulin Human Regular (Novolin R) 0 unit SC ACHS [facility] PRN Reason: Protocol Last Admin: 09/19/17 07:15 Dose: Not Given Ondansetron HCl (Zofran Inj) 4 mg IVP Q6 PRN PRN Reason: Nausea/Vomiting Last Admin: 09/16/17 08:01 Dose: 4 mg Pantoprazole Sodium (Protonix Inj) 40 mg IVP DAILY [facility] Last Admin: 09/18/17 09:36 Dose: 40 mg Sevelamer Carbonate (Renvela) 800 mg PO TID [facility] Last Admin: 09/18/17 17:19 Dose: 800 mg Simethicone (Mylicon Chew Tab) 40 mg PO QID PRN PRN Reason: gas retention/gas pain Tamsulosin HCl (Flomax) 0.4 mg PO DAILY [facility] Last Admin: 09/18/17 09:36 Dose: 0.4 mg - Labs Labs: 09/18/17 07:27 09/18/17 07:27 PT 12.0 SECONDS (9.7-12.2) 09/15/17 14:34 INR 1.1 09/15/17 14:34 APTT 29 SECONDS (21-34) 09/16/17 06:22 - Additional Findings Additional findings: - Constitutional Appears: No Acute Distress - Head Exam Head Exam: ATRAUMATIC, NORMOCEPHALIC - Eye Exam Eye Exam: EOMI Pupil Exam: PERRL (reactive in right pupil but not left) - ENT Exam ENT Exam: Mucous Membranes Moist - Respiratory Exam Respiratory Exam: Normal Breathing Pattern. absent: Rales, Rhonchi, Wheezes Additional comments: Coarse breath sounds bilaterally - Cardiovascular Exam Cardiovascular Exam: RRR, +S1, +S2 - GI/Abdominal Exam GI & Abdominal Exam: Normal Bowel Sounds, Soft. absent: Distended, Tenderness - Extremities Exam Extremities exam: Positive for: pedal pulses present. Negative for: pedal edema Additional comments: Left arm AV fistula with palpable bruits - Neurological Exam Neurological exam: Alert, CN II-XII Intact, Oriented x3 - Psychiatric Exam Psychiatric exam: Normal Affect, Normal Mood - Skin Skin Exam: Dry, Warm Assessment and Plan - Assessment and Plan (Free Text) Plan: 1). Sepsis Secondary to Likely Infected Right Chest PermaCath This was removed 09/16/17 Zosyn 2.25 gm IV Q8H Vancomycin after each dialysis session One time dose of Vancomycin 500 mg after dialysis today Blood Culture 09/15/17 shows E. faecalis Chest X Ray 09/15/17 showed mild cardiomegaly, mild pulmonary congestion, NO consolidation Urine Culture 09/15/17 NO growth 2). ESRD on HD T--Tue Had last HD on Tuesday09/16/[address] Mccabe planning for new PermaCath today HD to occur 09/19/17 after new PermaCath placed Nephrology Dr. Santos is aware of plan Vitamin D 50,000 units PO Q7D Renvela 800 mg PO 3x/day 3). Hx HTN Norvasc 2.5 mg PO 1x/day is on HOLD because of low blood pressure 4). Anemia Likely Secondary to ESRD Procrit 10,000 TTS Monitor and transfuse as necessary 5). Hx DM 2 Regular ISS Hemoglobin A1c 5.9 Hypoglycemic protocol Accuchecks 6). Hx Prostate CA S/P Seed Implants Flomax 0.4 mg PO 1x/day 7). Prophylaxis Tylenol 650 mg PO Q6H PRN Fever Zofran 4 mg IV Q6H PRN N/V Protonix 40 mg PO 1x/day HOLD Heparin secondary to Anemia Bilateral SCDs Discussed with Dr. Renetta Davis PGY-1 <Mayank Jackson H - Last Filed: 09/19/17 18:34> Objective - Vital Signs/Intake and Output Vital Signs (last 24 hours): Temp Pulse Resp BP Pulse Ox 98.9 F 68 13 149/74 100 09/19/17 14:30 09/19/17 14:45 09/19/17 14:45 09/19/17 14:45 09/19/17 14:45 - Medications Medications: Current Medications Acetaminophen (Tylenol 325mg Tab) 650 mg PO Q6 PRN PRN Reason: Fever >100.4 F Last Admin: 09/16/17 13:15 Dose: 650 mg Amlodipine Besylate (Norvasc) 2.5 mg PO DAILY [facility] Dextrose (Dextrose 50% Inj) 0 ml IV STAT PRN; Protocol PRN Reason: Hypoglycemia Protocol Dextrose (Glutose 15) 0 gm PO ONCE PRN; Protocol PRN Reason: Hypoglycemia Protocol Epoetin Tien (Procrit) 10,000 unit IV TTS [facility] Ergocalciferol (Drisdol 50,000 Intl Units Cap) 1 cap PO QWK [facility] Glucagon (Glucagen Diagnostic Kit) 0 mg IM STAT PRN; Protocol PRN Reason: Hypoglycemia Protocol Heparin Sodium (Porcine) (Heparin) 5,000 units SC Q8 [facility] Last Admin: 09/16/17 05:41 Dose: 5,000 units Piperacillin Sod/Tazobactam Sod (Zosyn 2.25 Gm Iv Premix) 2.25 gm in 50 mls @ 100 mls/hr IVPB Q8H [facility] Last Admin: 09/19/17 08:21 Dose: 100 mls/hr Dextrose (Dextrose 5% In Water 1000 Ml) 1,000 mls @ 0 mls/hr IV .Q0M PRN; Protocol; Per Protocol PRN Reason: Hypoglycemia Protocol Vancomycin/Sodium Chloride (Vancomycin 1 Gm/Ns 200 Ml) 1 gm in 200 mls @ 167 mls/hr IVPB TTS [facility] PRN Reason: Protocol Stop: 09/25/17 10:01 Insulin Human Regular (Novolin R) 0 unit SC ACHS [facility] PRN Reason: Protocol Last Admin: 09/19/17 17:30 Dose: Not Given Ondansetron HCl (Zofran Inj) 4 mg IVP Q6 PRN PRN Reason: Nausea/Vomiting Last Admin: 09/16/17 08:01 Dose: 4 mg Oxycodone/Acetaminophen (Percocet 5/325 Mg Tab) 1 tab PO Q6H PRN PRN Reason: Pain, moderate (4-7) Stop: 09/22/17 13:42 Pantoprazole Sodium (Protonix Inj) 40 mg IVP DAILY [facility] Last Admin: 09/19/17 09:52 Dose: 40 mg Sevelamer Carbonate (Renvela) 800 mg PO TID [facility] Last Admin: 09/19/17 09:37 Dose: Not Given Simethicone (Mylicon Chew Tab) 40 mg PO QID PRN PRN Reason: gas retention/gas pain Tamsulosin HCl (Flomax) 0.4 mg PO DAILY [facility] Last Admin: 09/19/17 09:37 Dose: Not Given - Labs Labs: 09/19/17 07:37 09/19/17 07:37 PT 12.0 SECONDS (9.7-12.2) 09/15/17 14:34 INR 1.1 09/15/17 14:34 APTT 29 SECONDS (21-34) 09/16/17 06:22 Attending/Attestation - Attestation I have personally seen and examined this patient.: Yes I have fully participated in the care of the patient.: Yes I have reviewed all pertinent clinical information, including history, physical exam and plan: Yes Notes (Text): 09/19/17 18:31 Medical attending: Patient was seen and examined by me. Agree with the above note by the resident The patient was seen by us before he went for the [facility] today. He was stable at that time Later I went down to see the patient having HD and he was doing well at that time too. So at this time we are continuing with the IV abx. He did report to us having loose watery stools so we will check for C diff. Considering he was recently at [facility] in [place], [place] he may have been on a very long time on abx. thank you Mayank Jackson
[2017-09-19 07:41] LABS: BASO # 0.1 K/uL (0.0-0.2); BASO % 1.1 % (0.0-2.0); EOS # 0.1 K/uL (0.0-0.7); EOS % 1.3 % (0.0-4.0); HEMOGLOBIN 7.7 g/dL (12.0-18.0); LYMPH # 0.7 K/uL (1.0-4.3); MEAN CELL VOLUME 92.7 fL (80.0-94.0); MEAN CORPUSCULAR HEMOGLOBIN 31.8 pg (27.0-31.0); MEAN CORPUSCULAR HGB CONC 34.3 g/dL (33.0-37.0); MONO # 0.4 K/uL (0.0-0.8); MONO % 8.3 % (0.0-10.0); NEUT # 3.4 K/uL (1.8-7.0); NEUT % 73.3 % (50.0-75.0); RBC 2.41 Mil/uL (4.40-5.90); RED CELL DISTRIBUTION WIDTH 15.1 % (11.5-14.5); WHITE BLOOD COUNT 4.6 K/uL (4.8-10.8)
[2017-09-19 08:19] LABS: ALB/GLOB RATIO 1.2 (1.0-2.1); ALBUMIN 3.1 g/dL (3.5-5.0); CALCIUM 8.9 mg/dl (8.6-10.4)
[2017-09-19] MEDS: Piperacill/Tazo 2.25gm in Dex 2.25 GM/50 ML BAG IVPB SCH ×3 (08:21→20:10)
[2017-09-19] MEDS ORDERED: Epoetin Alfa 10,000 unit/ml Dialysis IV ONE ×2 (11:30→18:45)
--- NOTE | 2017-09-19 11:59 | CARD ---
APPROVED REPORT EKG Measurement Heart [id number] P18 [id number] <Conclusion> Atrial flutter Right bundle branch block Abnormal ECG
[2017-09-19] MEDS ORDERED: Propofol 10 mg/ml Inj (20 ML) ONE (12:48)
[2017-09-19] MEDS ORDERED: Midazolam 2 MG/2 ML VIAL ONE (12:48)
[2017-09-19] MEDS ORDERED: Lactated Ringer's 500 ML IV ONE (12:50)
[2017-09-19] MEDS ORDERED: Lidocaine 2% Inj (20ml) ONE (12:54)
[2017-09-19] MEDS ORDERED: HEPARIN-NS 5,000 UNITS/500 ML 5,000 UNIT/500 ML BAG IV ONE (12:54)
[2017-09-19] MEDS ORDERED: Oxycodone/Acetaminophen 5/325 mg Tab PO PRN (13:41)
[2017-09-19] MEDS ORDERED: HYDROmorphone 0.5 mg/0.5 ml ISec IVP PRN (13:42)
--- NOTE | 2017-09-19 13:42 | PCM.SURG1 ---
Surgeon's Initial Post Op Note - Surgeon's Notes Surgeon: Dr. Mccabe Retail Pharmacy Manager: Dr. Zamora Type of Anesthesia: IV Sedation Pre-Operative Diagnosis: ESRD Operative Findings: same Post-Operative Diagnosis: same Operation Performed: Insertion of Permacath, Right IJ Specimen/Specimens Removed: none Estimated Blood Loss: EBL {In ML}: 15 Blood Products Given: N/A Drains Used: No Drains Post-Op Condition: Good Date of Surgery/Procedure: 09/19/17 Time of Surgery/Procedure: 13:42
--- NOTE | 2017-09-19 14:06 | RAD ---
Chest x-ray single frontal view History: PermCath placement. Comparison: 09/15/2017 Findings: Right central venous catheter with tip extending to the right atrium. Mild venous congestion. Right hilar prominence. Biapical pleural thickening with upper lobe granulomatous changes. Mild cardiomegaly. Degenerative changes in the spine and shoulders. Surgical clips in the right upper abdomen. Impression: Right central venous catheter with tip extending to the right atrium. Mild venous congestion. Right hilar prominence. Biapical pleural thickening with upper lobe granulomatous changes. Mild cardiomegaly.
--- NOTE | 2017-09-19 15:11 | CP.PCM.PN ---
Subjective - Date & Time of Evaluation Date of Evaluation: 09/19/17 Time of Evaluation: 15:09 - Subjective Subjective: Nephrology Consultation Note: Assessment: stable Sepsis likely permacath related infection Diabetic chronic Kidney Disease (E11.22) Hypertensive Chronic Kidney Disease (I12.0) End stage renal disease (N18.6) dependence on hemodialysis (Z99.2) (TTS) via permacath Anemia (D64.9), Hyperphosphatemia (E83.39), Secondary Hyperparathyroidism (E21.1 ), HTN (I12.0) Plan: Pt for HD today as ordered. next HD tomorrow as TTS schedule. Continue with Nephrovite 1 tab/day. PRBC as needed for anemia. On YOGI with HD as last Hb 7.7 Continue with phos binders home dose, last phos level 3.6 BP on the low side, hence no acei or ARB Glycemic control, Dialysis consistent diet Further work up/management as per primary team Dose meds/antibiotics for ESRD status. Avoid fleets enema/magnesium based laxatives. ID, vascular consult appreciated Thanks for allowing me to participate in care of your patient. Will follow patient with you. Please call if any Qs. Dr Constantino Jacobs Office: [phone] Chief Complaint; none HPI: Pt is a 72 M with hx of ESRD on hemodialysis (TTS) via permacath, chronic anemia, hyperphosphatemia, secondary hyperparathyroidism, Diabetes Mellitus, hypertension presented with complaints of chills and fever, found to have Sepsis Patient was started on dialysis recently at another hospital. Also has maturing AV fistula left upper arm Renal consult requested for ESRD management. ROS: Cardiovascular: No chest pain. Pulmonary: No shortness of breath Gastrointestinal: denies abdominal pain No nausea. No vomiting. Genitourinary: No pain while urinating. Denies blood in urine. All other negative except as mentioned in HPI. Physical Examination: General Appearance: comfortable, in no acute respiratory distress, co-operative . Vitals reviewed and noted as below Head; Atraumatic, normocephalic ENT: no ulcers no thrush. Tongue is midline. Oropharynx: no rash or ulcers. EYES: Pupils are equal, round and reactive to light accommodation. Eye muscles and extraocular movement intact. Sclera is anicteric. Neck; supple no lymphadenopathy, no thyromegaly or bruit Lungs: Normal respiratory rate/effort. Breath sounds bilateral equal and clear Heart: Normal rate. s1s2 normal. No rub or gallop. Extremities: no edema. No varicose veins Neurological: Patient is alert, awake and oriented to person, place and time. No focal deficit. Strength bilateral appropriate and equal Skin: Warm and dry. Normal turgor. No rash. Palpitation: Normal elasticity for age Abdomen: Abdomen is soft. Bowel sounds +. There is no abdominal tenderness, no guarding/rigidity or organomegaly Psych: normal insight and normal affect/mood MSK: no joint tenderness or swelling. Digits and nails normal, no deformity : kidney or bladder not palpable Access: Left AVG fistula maturing with good thrill and bruit Labs/imaging reviewed. Past medical history, past surgical history, family history, social history, allergy reviewed and noted as below Family Hx: no hx of CKD. Non contributory Blood culture positive for gram-positive cocci Objective - Vital Signs/Intake and Output Vital Signs (last 24 hours): Temp Pulse Resp BP Pulse Ox 99.0 F 67 12 129/68 100 09/19/17 13:40 09/19/17 14:00 09/19/17 14:00 09/19/17 14:00 09/19/17 14:00 - Medications Medications: Current Medications Acetaminophen (Tylenol 325mg Tab) 650 mg PO Q6 PRN PRN Reason: Fever >100.4 F Last Admin: 09/16/17 13:15 Dose: 650 mg Dextrose (Dextrose 50% Inj) 0 ml IV STAT PRN; Protocol PRN Reason: Hypoglycemia Protocol Dextrose (Glutose 15) 0 gm PO ONCE PRN; Protocol PRN Reason: Hypoglycemia Protocol Epoetin Tien (Procrit) 10,000 unit IV TTS [facility] Ergocalciferol (Drisdol 50,000 Intl Units Cap) 1 cap PO QWK [facility] Glucagon (Glucagen Diagnostic Kit) 0 mg IM STAT PRN; Protocol PRN Reason: Hypoglycemia Protocol Heparin Sodium (Porcine) (Heparin) 5,000 units SC Q8 [facility] Last Admin: 09/16/17 05:41 Dose: 5,000 units Hydromorphone HCl (Dilaudid) 0.5 mg IVP Q5M PRN PRN Reason: Pain, moderate (4-7) Stop: 09/19/17 15:42 Piperacillin Sod/Tazobactam Sod (Zosyn 2.25 Gm Iv Premix) 2.25 gm in 50 mls @ 100 mls/hr IVPB Q8H [facility] Last Admin: 09/19/17 08:21 Dose: 100 mls/hr Dextrose (Dextrose 5% In Water 1000 Ml) 1,000 mls @ 0 mls/hr IV .Q0M PRN; Protocol; Per Protocol PRN Reason: Hypoglycemia Protocol Vancomycin/Sodium Chloride (Vancomycin 1 Gm/Ns 200 Ml) 1 gm in 200 mls @ 167 mls/hr IVPB TTS [facility] PRN Reason: Protocol Stop: 09/25/17 10:01 Insulin Human Regular (Novolin R) 0 unit SC ACHS [facility] PRN Reason: Protocol Last Admin: 09/19/17 11:26 Dose: Not Given Ondansetron HCl (Zofran Inj) 4 mg IVP Q6 PRN PRN Reason: Nausea/Vomiting Last Admin: 09/16/17 08:01 Dose: 4 mg Oxycodone/Acetaminophen (Percocet 5/325 Mg Tab) 1 tab PO Q6H PRN PRN Reason: Pain, moderate (4-7) Stop: 09/22/17 13:42 Pantoprazole Sodium (Protonix Inj) 40 mg IVP DAILY [facility] Last Admin: 09/19/17 09:52 Dose: 40 mg Sevelamer Carbonate (Renvela) 800 mg PO TID [facility] Last Admin: 09/19/17 09:37 Dose: Not Given Simethicone (Mylicon Chew Tab) 40 mg PO QID PRN PRN Reason: gas retention/gas pain Tamsulosin HCl (Flomax) 0.4 mg PO DAILY [facility] Last Admin: 09/19/17 09:37 Dose: Not Given - Labs Labs: 09/19/17 07:37 09/19/17 07:37 PT 12.0 SECONDS (9.7-12.2) 09/15/17 14:34 INR 1.1 09/15/17 14:34 APTT 29 SECONDS (21-34) 09/16/17 06:22
--- NOTE | 2017-09-19 17:59 | RAD ---
PROCEDURE: Fluoroscopy up to 1 hr. HISTORY: RENAL FAILURE COMPARISON: None TECHNIQUE: Total fluoroscopic time (continuous mode) utilized during the procedure (seconds) 15.2. Total exam DLP: (mGy) 0.74. FINDINGS: Submitted images from the current procedure: 1.0. IMPRESSION: One image, 15.2 seconds fluoro time utilized for PermCath placement.
[2017-09-20] MEDS: Piperacill/Tazo 2.25gm in Dex 2.25 GM/50 ML BAG IVPB SCH ×2 (00:04→08:30)
--- NOTE | 2017-09-20 01:42 | OP ---
PROCEDURE DATE: 09/19/2017 PREOPERATIVE DIAGNOSIS: Renal failure. POSTOPERATIVE DIAGNOSIS: Renal failure. PROCEDURE CARRIED OUT: Placement of Perm-A-Cath right jugular vein with C-arm fluoroscopy with ultrasound-guided puncture and micropuncture technique. SURGEON: Dr. Mccabe. PLASTICS FACTORY WORKER: Dr. Zamora. ANESTHESIOLOGIST: Mr. Banks. TYPE OF ANESTHESIA: Local with sedation. DESCRIPTION OF PROCEDURE: The patient is a 72-year-old male with renal insufficiency, who was admitted to the hospital with an infection, required removal of catheter, has a good fistula in his left arm which needs time to mature. OPERATIVE FINDINGS: New catheter was placed uneventfully. Using ultrasound guidance and micropuncture technique, the right jugular vein was punctured. Under fluoroscopic control, the catheter was advanced essentially. This was subsequently changed from 0.035 wire in a larger delivery system and then the original planned catheter, which was a Perm-A-Cath was delivered. It was originated on the right chest wall, went through the jugular vein, and terminated in the superior vena cava. This was flushed with heparinized saline returned. Secured to skin with nylon sutures. Operation carried out, Perm-A-Cath, right jugular vein with C-arm fluoroscopy, ultrasound-guided puncture and micropuncture technique. Ultrasound images of the neck showed the vein was 12 mm in diameter with normal compressibility and no intraluminal thrombosis. Everett Mccabe Jr., MD
[2017-09-20 06:14] LABS: BASO # 0.1 K/uL (0.0-0.2); BASO % 1.3 % (0.0-2.0); EOS # 0.1 K/uL (0.0-0.7); EOS % 1.3 % (0.0-4.0); HEMOGLOBIN 8.4 g/dL (12.0-18.0); LYMPH # 0.9 K/uL (1.0-4.3); MEAN CORPUSCULAR HEMOGLOBIN 32.4 pg (27.0-31.0); MEAN CORPUSCULAR HGB CONC 35.3 g/dL (33.0-37.0); MEAN PLATELET VOLUME 7.6 fL (7.2-11.7); MONO # 0.5 K/uL (0.0-0.8); MONO % 8.6 % (0.0-10.0); NEUT % 71.8 % (50.0-75.0); NRBC % 0.1 % (0.0-2.0); RBC 2.58 Mil/uL (4.40-5.90); RED CELL DISTRIBUTION WIDTH 15.1 % (11.5-14.5); WHITE BLOOD COUNT 5.5 K/uL (4.8-10.8)
[2017-09-20 06:27] LABS: ALB/GLOB RATIO 1.2 (1.0-2.1); ALBUMIN 3.1 g/dL (3.5-5.0); CALCIUM 9.1 mg/dl (8.6-10.4)
--- NOTE | 2017-09-20 07:05 | CP.PCM.PN ---
Subjective - Date & Time of Evaluation Date of Evaluation: 09/20/17 Time of Evaluation: 07:00 - Subjective Subjective: Medicine progress note for Dr. Jackson Patient seen and examined. Patient reports that he has no acute complaints today. Objective - Vital Signs/Intake and Output Vital Signs (last 24 hours): Temp Pulse Resp BP Pulse Ox 99.1 F 106 H 20 119/66 96 09/19/17 23:05 09/20/17 00:10 09/19/17 23:05 09/19/17 23:05 09/19/17 23:05 Intake and Output: 09/20/17 09/20/17 06:59 18:59 Intake Total 745 Balance 745 - Medications Medications: Current Medications Acetaminophen (Tylenol 325mg Tab) 650 mg PO Q6 PRN PRN Reason: Fever >100.4 F Last Admin: 09/16/17 13:15 Dose: 650 mg Amlodipine Besylate (Norvasc) 2.5 mg PO DAILY [facility] Dextrose (Dextrose 50% Inj) 0 ml IV STAT PRN; Protocol PRN Reason: Hypoglycemia Protocol Dextrose (Glutose 15) 0 gm PO ONCE PRN; Protocol PRN Reason: Hypoglycemia Protocol Epoetin Tien (Procrit) 10,000 unit IV TTS [facility] Ergocalciferol (Drisdol 50,000 Intl Units Cap) 1 cap PO QWK [facility] Glucagon (Glucagen Diagnostic Kit) 0 mg IM STAT PRN; Protocol PRN Reason: Hypoglycemia Protocol Heparin Sodium (Porcine) (Heparin) 5,000 units SC Q8 [facility] Last Admin: 09/16/17 05:41 Dose: 5,000 units Piperacillin Sod/Tazobactam Sod (Zosyn 2.25 Gm Iv Premix) 2.25 gm in 50 mls @ 100 mls/hr IVPB Q8H [facility] Last Admin: 09/20/17 00:04 Dose: 100 mls/hr Dextrose (Dextrose 5% In Water 1000 Ml) 1,000 mls @ 0 mls/hr IV .Q0M PRN; Protocol; Per Protocol PRN Reason: Hypoglycemia Protocol Vancomycin/Sodium Chloride (Vancomycin 1 Gm/Ns 200 Ml) 1 gm in 200 mls @ 167 mls/hr IVPB TTS [facility] PRN Reason: Protocol Stop: 09/25/17 10:01 Insulin Human Regular (Novolin R) 0 unit SC ACHS [facility] PRN Reason: Protocol Last Admin: 09/19/17 21:42 Dose: Not Given Ondansetron HCl (Zofran Inj) 4 mg IVP Q6 PRN PRN Reason: Nausea/Vomiting Last Admin: 09/16/17 08:01 Dose: 4 mg Oxycodone/Acetaminophen (Percocet 5/325 Mg Tab) 1 tab PO Q6H PRN PRN Reason: Pain, moderate (4-7) Stop: 09/22/17 13:42 Last Admin: 09/20/17 05:59 Dose: 1 tab Pantoprazole Sodium (Protonix Inj) 40 mg IVP DAILY [facility] Last Admin: 09/19/17 09:52 Dose: 40 mg Sevelamer Carbonate (Renvela) 800 mg PO TID [facility] Last Admin: 09/19/17 20:10 Dose: 800 mg Simethicone (Mylicon Chew Tab) 40 mg PO QID PRN PRN Reason: gas retention/gas pain Tamsulosin HCl (Flomax) 0.4 mg PO DAILY [facility] Last Admin: 09/19/17 09:37 Dose: Not Given - Labs Labs: 09/20/17 06:07 09/20/17 06:07 PT 12.0 SECONDS (9.7-12.2) 09/15/17 14:34 INR 1.1 09/15/17 14:34 APTT 29 SECONDS (21-34) 09/16/17 06:22 - Additional Findings Additional findings: - Constitutional Appears: No Acute Distress - Head Exam Head Exam: ATRAUMATIC, NORMOCEPHALIC - Eye Exam Eye Exam: EOMI Pupil Exam: PERRL (reactive in right pupil but not left) - ENT Exam ENT Exam: Mucous Membranes Moist - Respiratory Exam Respiratory Exam: Normal Breathing Pattern. absent: Rales, Rhonchi, Wheezes Additional comments: Coarse breath sounds bilaterally - Cardiovascular Exam Cardiovascular Exam: RRR, +S1, +S2 - GI/Abdominal Exam GI & Abdominal Exam: Normal Bowel Sounds, Soft. absent: Distended, Tenderness - Extremities Exam Extremities exam: Positive for: pedal pulses present. Negative for: pedal edema Additional comments: Left arm AV fistula with palpable bruits - Neurological Exam Neurological exam: Alert, CN II-XII Intact, Oriented x3 - Psychiatric Exam Psychiatric exam: Normal Affect, Normal Mood - Skin Skin Exam: Dry, Warm Assessment and Plan - Assessment and Plan (Free Text) Plan: 1). Sepsis Secondary to Likely Infected Right Chest PermaCath This was removed 09/16/17 Zosyn 2.25 gm IV Q8H Vancomycin 1 gm after each dialysis session Blood Culture 09/15/17 shows E. faecalis Chest X Ray 09/15/17 showed mild cardiomegaly, mild pulmonary congestion, NO consolidation Urine Culture 09/15/17 NO growth 2). ESRD on HD T--Sat Vascular Surgeon Dr. Mccabe, help appreciated New dialysis catheter placed 09/19/17 Nephrology consult, Dr. Santos, help appreciated Vitamin D 50,000 units PO Q7D [facility] 800 mg PO 3x/day 3). Hx HTN Norvasc 2.5 mg PO 1x/day 4). Anemia Likely Secondary to ESRD Procrit 10,000 TTS Monitor and transfuse as necessary 5). Hx DM 2 Regular ISS Hemoglobin A1c 5.9 Hypoglycemic protocol Accuchecks 6). Hx Prostate CA S/P Seed Implants Flomax 0.4 mg PO 1x/day 7). Prophylaxis Tylenol 650 mg PO Q6H PRN Fever Zofran 4 mg IV Q6H PRN N/V Protonix 40 mg PO 1x/day HOLD Heparin secondary to Anemia Bilateral SCDs
--- NOTE | 2017-09-20 07:46 | CP.PCM.PN ---
Subjective - Date & Time of Evaluation Date of Evaluation: 09/20/17 Time of Evaluation: 06:45 - Subjective Subjective: Vascular surgery progress note for Dr. Carl Grimm, PGY-1 Pt S & E at bedside. Pt reports minimal pain at RIJ permacath insertion site. No other problems reported. No acute events overnight. Objective - Vital Signs/Intake and Output Vital Signs (last 24 hours): Temp Pulse Resp BP Pulse Ox 98.6 F 84 20 106/56 L 96 09/20/17 07:10 09/20/17 07:10 09/20/17 07:10 09/20/17 07:10 09/20/17 07:10 Intake and Output: 09/20/17 09/20/17 06:59 18:59 Intake Total 745 Balance 745 - Medications Medications: Current Medications Acetaminophen (Tylenol 325mg Tab) 650 mg PO Q6 PRN PRN Reason: Fever >100.4 F Last Admin: 09/16/17 13:15 Dose: 650 mg Amlodipine Besylate (Norvasc) 2.5 mg PO DAILY [facility] Dextrose (Dextrose 50% Inj) 0 ml IV STAT PRN; Protocol PRN Reason: Hypoglycemia Protocol Dextrose (Glutose 15) 0 gm PO ONCE PRN; Protocol PRN Reason: Hypoglycemia Protocol Epoetin Tien (Procrit) 10,000 unit IV TTS VICKY Ergocalciferol (Drisdol 50,000 Intl Units Cap) 1 cap PO QWK [facility]ICK[facility] Glucagon (Glucagen Diagnostic Kit) 0 mg IM STAT PRN; Protocol PRN Reason: Hypoglycemia Protocol Heparin Sodium (Porcine) (Heparin) 5,000 units SC Q8 [facility] Last Admin: 09/16/17 05:41 Dose: 5,000 units Hydrocortisone (Anusol-Hc) 0 gm DE BID VICKY Piperacillin Sod/Tazobactam Sod (Zosyn 2.25 Gm Iv Premix) 2.25 gm in 50 mls @ 100 mls/hr IVPB Q8H [facility] Last Admin: 09/20/17 00:04 Dose: 100 mls/hr Dextrose (Dextrose 5% In Water 1000 Ml) 1,000 mls @ 0 mls/hr IV .Q0M PRN; Protocol; Per Protocol PRN Reason: Hypoglycemia Protocol Vancomycin/Sodium Chloride (Vancomycin 1 Gm/Ns 200 Ml) 1 gm in 200 mls @ 167 mls/hr IVPB TTS VICKY PRN Reason: Protocol Stop: 09/25/17 10:01 Insulin Human Regular (Novolin R) 0 unit SC ACHS VICKY PRN Reason: Protocol Last Admin: 09/19/17 21:42 Dose: Not Given Ondansetron HCl (Zofran Inj) 4 mg IVP Q6 PRN PRN Reason: Nausea/Vomiting Last Admin: 09/16/17 08:01 Dose: 4 mg Oxycodone/Acetaminophen (Percocet 5/325 Mg Tab) 1 tab PO Q6H PRN PRN Reason: Pain, moderate (4-7) Stop: 09/22/17 13:42 Last Admin: 09/20/17 05:59 Dose: 1 tab Pantoprazole Sodium (Protonix Inj) 40 mg IVP DAILY [facility] Last Admin: 09/19/17 09:52 Dose: 40 mg Sevelamer Carbonate (Renvela) 800 mg PO TID [facility] Last Admin: 09/19/17 20:10 Dose: 800 mg Simethicone (Mylicon Chew Tab) 40 mg PO QID PRN PRN Reason: gas retention/gas pain Tamsulosin HCl (Flomax) 0.4 mg PO DAILY [facility] Last Admin: 09/19/17 09:37 Dose: Not Given - Labs Labs: 09/20/17 06:07 09/20/17 06:07 PT 12.0 SECONDS (9.7-12.2) 09/15/17 14:34 INR 1.1 09/15/17 14:34 APTT 29 SECONDS (21-34) 09/16/17 06:22 - Constitutional Appears: Non-toxic, No Acute Distress - Head Exam Head Exam: ATRAUMATIC, NORMAL INSPECTION, NORMOCEPHALIC - Eye Exam Eye Exam: EOMI, Normal appearance - ENT Exam ENT Exam: Mucous Membranes Moist, Normal Exam - Neck Exam Neck Exam: Full ROM, Normal Inspection - Respiratory Exam Respiratory Exam: Chest Wall Tenderness (minimal, over RIJ permacath placement) , NORMAL BREATHING PATTERN - Cardiovascular Exam Cardiovascular Exam: REGULAR RHYTHM, +S1, +S2 - GI/Abdominal Exam GI & Abdominal Exam: Soft. absent: Distended - Extremities Exam Extremities Exam: Normal Inspection - Neurological Exam Neurological Exam: Alert, Awake, CN II-XII Intact, Oriented x3 - Psychiatric Exam Psychiatric exam: Normal Affect, Normal Mood - Skin Skin Exam: Dry, Intact, Normal Color, Warm Additional comments: RIJ permacath in R chest wall, no drainage, erythema, or blood noted Assessment and Plan - Assessment and Plan (Free Text) Assessment: 72M POD#1 s/p RIJ permacath placement Plan: Cont HD via RIJ permacath Cont pain mgmt Further mgmt as per primary team Please re-consult as needed Thank you for this consult Will JENNIFER attending Sirisha, PGY-1
[2017-09-20] MEDS: (Novolin R) Insulin Human Regular 100 units/ml vial SC SCH ×2 (08:07→12:30)
[2017-09-20] MEDS ORDERED: Vancomycin 1 gm/NS 200 ml 1 GM/200 ML BAG IVPB SCH (10:00)
[2017-09-20] MEDS ORDERED: Epoetin Alfa 10,000 unit/ml Dialysis IV SCH ×2 (10:00)
[2017-09-20] MEDS ORDERED: Hydrocortisone 2.5% Rectal Cream(30 gm) PR SCH (10:00)
--- NOTE | 2017-09-20 11:30 | CP.PCM.DIS ---
<Johan Davis - Last Filed: 09/20/17 15:05> Provider - Provider Date of Admission: 09/15/17 16:59 Attending physician: Mayank Jackson DO Primary care physician: Dr. Zhang Consults: Infectious Disease: Dr. Meadows Nephrology: Dr. Santos/Dr. Jacobs Vascular Surgery: Dr. Mccabe Time Spent in preparation of Discharge (in minutes): 45 Diagnosis - Discharge Diagnosis (1) Catheter-related bloodstream infection Status: Acute Priority: High (2) Sepsis Status: Acute Priority: High (3) ESRD (end stage renal disease) on dialysis Status: Chronic Priority: High (4) Anemia Status: Chronic Priority: Medium (5) History of diabetes mellitus Status: Chronic Priority: Low (6) History of prostate cancer Status: Chronic Priority: Low Hospital Course - Lab Results Lab Results: Micro Results 09/16/17 11:10 Blood-Thru Central Line Blood Culture - Preliminary NO GROWTH AFTER 3 DAYS 09/16/17 10:40 Blood-Thru Central Line Blood Culture - Preliminary NO GROWTH AFTER 3 DAYS 09/15/17 14:40 Blood Blood Culture - Final Enterococcus Faecalis 09/15/17 14:40 Blood Gram Stain - Final 09/15/17 14:20 Blood S.aureus & Coag-Neg Staph PNA FISH - Final 09/15/17 14:20 Blood Blood Culture - Final Enterococcus Faecalis 09/15/17 14:20 Blood Gram Stain - Final 09/15/17 Unknown Urine,Clean Catch Urine Culture - Final No Growth (<1,000 CFU/ML) Most Recent Lab Values WBC 5.5 K/uL (4.8-10.8) 09/20/17 06:07 RBC 2.58 Mil/uL (4.40-5.90) L 09/20/17 06:07 Hgb 8.4 g/dL (12.0-18.0) L 09/20/17 06:07 Hct 23.8 % (35.0-51.0) L 09/20/17 06:07 MCV 92.0 fL (80.0-94.0) 09/20/17 06:07 MCH 32.4 pg (27.0-31.0) H 09/20/17 06:07 MCHC 35.3 g/dL (33.0-37.0) 09/20/17 06:07 RDW 15.1 % (11.5-14.5) H 09/20/17 06:07 Plt Count 249 K/uL (130-400) 09/20/17 06:07 MPV 7.6 fL (7.2-11.7) 09/20/17 06:07 Neut % (Auto) 71.8 % (50.0-75.0) 09/20/17 06:07 Lymph % (Auto) 17.0 % (20.0-40.0) L 09/20/17 06:07 [place] % (Auto) 8.6 % (0.0-10.0) 09/20/17 06:07 Eos % (Auto) 1.3 % (0.0-4.0) 09/20/17 06:07 Baso % (Auto) 1.3 % (0.0-2.0) 09/20/17 06:07 Neut # (Auto) 4.0 K/uL (1.8-7.0) 09/20/17 06:07 Lymph # (Auto) 0.9 K/uL (1.0-4.3) L 09/20/17 06:07 [place] # (Auto) 0.5 K/uL (0.0-0.8) 09/20/17 06:07 Eos # (Auto) 0.1 K/uL (0.0-0.7) 09/20/17 06:07 Baso # (Auto) 0.1 K/uL (0.0-0.2) 09/20/17 06:07 Neutrophils % (Manual) 78 % (50-75) H 09/17/17 07:26 Band Neutrophils % 2 % (0-2) 09/16/17 06:22 Lymphocytes % (Manual) 9 % (20-40) L 09/17/17 07:26 Monocytes % (Manual) 13 % (0-10) H 09/17/17 07:26 Eosinophils % (Manual) 1 % (0-4) 09/15/17 14:34 Platelet Estimate Normal (NORMAL) 09/17/17 07:26 Polychromasia Slight 09/17/17 07:26 Hypochromasia (manual) Slight 09/17/17 07:26 Poikilocytosis (manual Slight 09/17/17 07:26 Basophilic Stippling Slight 09/17/17 07:26 Anisocytosis (manual) Slight 09/17/17 07:26 Target Cells Slight 09/16/17 06:22 Ovalocytes Slight 09/17/17 07:26 PT 12.0 SECONDS (9.7-12.2) 09/15/17 14:34 INR 1.1 09/15/17 14:34 APTT 29 SECONDS (21-34) 09/16/17 06:22 pO2 29 mm/Hg (30-55) L 09/15/17 17:17 VBG pH 7.39 (7.32-7.43) 09/15/17 17:17 VBG pCO2 39 mmHg (40-60) L 09/15/17 17:17 VBG HCO3 22.8 mmol/L 09/15/17 17:17 VBG Total CO2 24.8 mmol/L (22-28) 09/15/17 17:17 VBG O2 Sat (Calc) 64.5 % (40-65) 09/15/17 17:17 VBG Base Excess -1.2 mmol/L (0.0-2.0) L 09/15/17 17:17 VBG Potassium 3.0 mmol/L (3.6-5.2) L 09/15/17 17:17 Sodium 133.0 mmol/l (132-148) 09/15/17 17:17 Chloride 85.0 mmol/L (98-107) L 09/15/17 17:17 Glucose 442 mg/dl (75-110) H* D 09/15/17 17:17 Lactate 0.8 mmol/L (0.7-2.1) 09/15/17 17:17 FiO2 21.0 % 09/15/17 14:35 Crit Value Called To Dr mccain 09/15/17 17:17 Crit Value Called By Dmitriy agarwal 09/15/17 17:17 Crit Value Read Back Y 09/15/17 17:17 Blood Gas Notified Time 1720 09/15/17 17:17 Sodium 138 mmol/L (132-148) 09/20/17 06:07 Potassium 4.1 mmol/L (3.6-5.2) 09/20/17 06:07 Chloride 100 mmol/L (98-107) 09/20/17 06:07 Carbon Dioxide 27 mmol/L (22-30) 09/20/17 06:07 Anion Gap 15 (10-20) 09/20/17 06:07 BUN 26 mg/dL (9-20) H 09/20/17 06:07 Creatinine 6.6 mg/dL (0.8-1.5) H 09/20/17 06:07 Est GFR ( Amer) 10 09/20/17 06:07 Est GFR (Non-Af Amer) 8 09/20/17 06:07 POC Glucose (mg/dL) 137 mg/dL (65-110) H 09/20/17 05:56 Random Glucose 142 mg/dL (75-110) H 09/20/17 06:07 Hemoglobin A1c 5.9 % (4.2-6.5) 09/16/17 06:22 Calcium 9.1 mg/dl (8.6-10.4) 09/20/17 06:07 Phosphorus 4.2 mg/dL (2.5-4.5) 09/20/17 06:07 Magnesium 2.1 mg/dL (1.6-2.3) 09/20/17 06:07 Total Bilirubin 0.4 mg/dL (0.2-1.3) 09/20/17 06:07 AST 49 U/L (17-59) 09/20/17 06:07 ALT 46 U/L (21-72) 09/20/17 06:07 Alkaline Phosphatase 71 U/L (38-126) 09/20/17 06:07 Troponin I 0.0180 ng/mL (0.00-0.120) 09/15/17 14:34 NT-Pro-B Natriuret Pep 1090 pg/mL (0-900) H 09/15/17 14:34 Total Protein 5.7 g/dL (6.3-8.3) L 09/20/17 06:07 Albumin 3.1 g/dL (3.5-5.0) L 09/20/17 06:07 Globulin 2.5 gm/dL (2.2-3.9) 09/20/17 06:07 Albumin/Globulin Ratio 1.2 (1.0-2.1) 09/20/17 06:07 Venous Blood Potassium 3.0 mmol/L (3.6-5.2) L 09/15/17 17:17 Urine Color Colorless (YELLOW) 09/15/17 15:07 Urine Clarity Clear (Clear) 09/15/17 15:07 Urine pH 9.0 (5.0-8.0) 09/15/17 15:07 Ur Specific [place] 1.007 (1.003-1.030) 09/15/17 15:07 Urine Protein 3+ mg/dL (NEGATIVE) H 09/15/17 15:07 Urine Glucose (UA) 2+ mg/dL (Normal) H 09/15/17 15:07 Urine Ketones Negative mg/dL (NEGATIVE) 09/15/17 15:07 Urine Blood Negative (NEGATIVE) 09/15/17 15:07 Urine Nitrate Negative (NEGATIVE) 09/15/17 15:07 Urine Bilirubin Negative (NEGATIVE) 09/15/17 15:07 Urine Urobilinogen Normal mg/dL (0.2-1.0) 09/15/17 15:07 Ur Leukocyte Esterase Neg Betzaida/uL (Negative) 09/15/17 15:07 Urine WBC (Auto) < 1 /hpf (0-5) 09/15/17 15:07 Urine RBC (Auto) < 1 /hpf (0-3) 09/15/17 15:07 Ur Squamous Epith Cells < 1 /hpf (0-5) 09/15/17 15:07 Vancomycin Trough 8.9 ug/mL (5.0-10.0) 09/19/17 17:37 Random Vancomycin 17.61 ug/mL 09/19/17 07:37 C. difficile Ag & Toxin Negative (NEGATIVE) 09/19/17 11:11 Influenza Typ A,B (EIA) Negative for flu a/b (NEGATIVE) 09/15/17 15:44 Blood Type B POSITIVE 09/16/17 08:26 Blood Type Confirm B POSITIVE 09/16/17 08:26 Antibody Screen Negative 09/16/17 08:26 - Hospital Course Hospital Course: Initial Note: This is a 72 year old male with PMHx HTN, DM, ESRD on (HD T, Th, S), prostate CA s/[ seed implants who presents complaining of fever and chills that began this morning. Patient had been diagnosed with renal disease 5 years ago but has held off on initiating dialysis until recently. Patient was at [facility] where on 09/01/17, he received a permacath as well as left AV fistula on the same day. Patient received two dialysis session after this. Patient was supposed to undergo dialysis today but has missed it due to illness. Patient also experienced associated nausea/vomiting, weakness, and generalized malaise this morning. Patient has no other complaints at this time aside from chronic constipation. Hospital Course: Patient admitted for fevers and sepsis with suspected source of dialysis catheter infection. Patient had Permacath placed at [facility] on which was the suspected source of his Enterococcus faecalis bacteremia. He was treated with Vancomycin and renally dosed Zosyn while he was in the hospital. Repeat blood cultures through the dialysis catheter after the patient received antibiotics were negative. Vascular surgery removed the catheter on and a new one was inserted on 09/19/17. Patient discharged with two week course of Vancomycin 500 mg to be given with his dialysis sessions T, Th, S. Patient also will take a course of Ampicillin 500 mg PO BID for ten days. This is a summary of the patient's hospitalization. For more information, refer to the medical records. Discharge Exam - Additional Findings Additional findings: - Constitutional Appears: No Acute Distress - Head Exam Head Exam: ATRAUMATIC, NORMOCEPHALIC - Eye Exam Eye Exam: EOMI Pupil Exam: PERRL (reactive in right pupil but not left) - ENT Exam ENT Exam: Mucous Membranes Moist - Respiratory Exam Respiratory Exam: Clear To Auscultation Bilaterally. Normal Breathing Pattern. absent: Rales, Rhonchi, Wheezes - Cardiovascular Exam Cardiovascular Exam: RRR, +S1, +S2 - GI/Abdominal Exam GI & Abdominal Exam: Normal Bowel Sounds, Soft. absent: Distended, Tenderness - Extremities Exam Extremities exam: Positive for: pedal pulses present. Negative for: pedal edema Additional comments: Left arm AV fistula with palpable bruits - Neurological Exam Neurological exam: Alert, CN II-XII Intact, Oriented x3 - Psychiatric Exam Psychiatric exam: Normal Affect, Normal Mood - Skin Skin Exam: Dry, Warm Discharge Plan - Discharge Medications Prescriptions: amLODIPine [Norvasc] 2.5 mg PO DAILY #30 tab AMPicillin [Ampicillin] 500 mg PO BID #20 cap Cholecalciferol (Vitamin D3) [Vitamin D3] 1 tab PO DAILY #30 tab.chew Sevelamer Carbonate [Renvela] 800 mg PO TID #90 tab Tamsulosin [Flomax] 0.4 mg PO DAILY #30 cap Vancomycin [Vancomycin Inj] 500 mg IV DIAL #6 vial - Follow Up Plan Condition: STABLE Disposition: HOME/ ROUTINE Instructions: Dialysis Diet , Hemodialysis (DC), Sepsis, Adult (DC), Amlodipine , Ampicillin, Cholecalciferol, Sevelamer, Tamsulosin, Vancomycin, End Stage Kidney Disease (DC), Fever in Adults (GEN) Additional Instructions: Please continue your home medications as they were prescribed. You will need to take two antibiotics. The first is the Vancomycin 500 mg to be given with each dialysis session for 2 weeks. The second is the Ampicillin 500 mg by mouth. Take this twice a day for 10 days. Please continue receiving dialysis at your regularly scheduled sessions on Tuesday, , and Tuesday. Please follow up with your primary physician within 1 week of discharge. If there are any new or worsening symptoms, please go to the nearest emergency room. Por favor, contine con los medicamentos de mora casa francis claudia fueron recetados. Tendr que brandi dos antibiticos. El nader es el Vancomycin 500 mg que se administrar con cada sesin de di lisis katarzyna 2 semanas. El hernesto es Ampicillin 500 mg por va oral. Karlie esto dos veces al da katarzyna 10 stephens. Contine recibiendo dilisis en thai sesiones programadas regularmente los leslie , jueves y sbados. Por favor juan un seguimiento con mora mdico de cabecera dentro de 1 semana de giselle sido dado de alee. Si hay sntomas nuevos o que empeoran, vaya a la miles de emergencias ms cercana. Referrals: Jose Zhang MD [Medical Doctor] - Constantino Jacobs MD [Staff Provider] - Everett Mccabe Jr., MD [Staff Provider] - <Mayank Jackson - Last Filed: 09/20/17 15:44> Provider - Provider Date of Admission: 09/15/17 16:59 Attending physician: Mayank Jackson DO Hospital Course - Lab Results Lab Results: Micro Results 09/16/17 11:10 Blood-Thru Central Line Blood Culture - Preliminary NO GROWTH AFTER 3 DAYS 09/16/17 10:40 Blood-Thru Central Line Blood Culture - Preliminary NO GROWTH AFTER 3 DAYS 09/15/17 14:40 Blood Blood Culture - Final Enterococcus Faecalis 09/15/17 14:40 Blood Gram Stain - Final 09/15/17 14:20 Blood S.aureus & Coag-Neg Staph PNA FISH - Final 09/15/17 14:20 Blood Blood Culture - Final Enterococcus Faecalis 09/15/17 14:20 Blood Gram Stain - Final 09/15/17 Unknown Urine,Clean Catch Urine Culture - Final No Growth (<1,000 CFU/ML) Most Recent Lab Values WBC 5.5 K/uL (4.8-10.8) 09/20/17 06:07 RBC 2.58 Mil/uL (4.40-5.90) L 09/20/17 06:07 Hgb 8.4 g/dL (12.0-18.0) L 09/20/17 06:07 Hct 23.8 % (35.0-51.0) L 09/20/17 06:07 MCV 92.0 fL (80.0-94.0) 09/20/17 06:07 MCH 32.4 pg (27.0-31.0) H 09/20/17 06:07 MCHC 35.3 g/dL (33.0-37.0) 09/20/17 06:07 RDW 15.1 % (11.5-14.5) H 09/20/17 06:07 Plt Count 249 K/uL (130-400) 09/20/17 06:07 MPV 7.6 fL (7.2-11.7) 09/20/17 06:07 Neut % (Auto) 71.8 % (50.0-75.0) 09/20/17 06:07 Lymph % (Auto) 17.0 % (20.0-40.0) L 09/20/17 06:07 [place] % (Auto) 8.6 % (0.0-10.0) 09/20/17 06:07 Eos % (Auto) 1.3 % (0.0-4.0) 09/20/17 06:07 Baso % (Auto) 1.3 % (0.0-2.0) 09/20/17 06:07 Neut # (Auto) 4.0 K/uL (1.8-7.0) 09/20/17 06:07 Lymph # (Auto) 0.9 K/uL (1.0-4.3) L 09/20/17 06:07 [place] # (Auto) 0.5 K/uL (0.0-0.8) 09/20/17 06:07 Eos # (Auto) 0.1 K/uL (0.0-0.7) 09/20/17 06:07 Baso # (Auto) 0.1 K/uL (0.0-0.2) 09/20/17 06:07 Neutrophils % (Manual) 78 % (50-75) H 09/17/17 07:26 Band Neutrophils % 2 % (0-2) 09/16/17 06:22 Lymphocytes % (Manual) 9 % (20-40) L 09/17/17 07:26 Monocytes % (Manual) 13 % (0-10) H 09/17/17 07:26 Eosinophils % (Manual) 1 % (0-4) 09/15/17 14:34 Platelet Estimate Normal (NORMAL) 09/17/17 07:26 Polychromasia Slight 09/17/17 07:26 Hypochromasia (manual) Slight 09/17/17 07:26 Poikilocytosis (manual Slight 09/17/17 07:26 Basophilic Stippling Slight 09/17/17 07:26 Anisocytosis (manual) Slight 09/17/17 07:26 Target Cells Slight 09/16/17 06:22 Ovalocytes Slight 09/17/17 07:26 PT 12.0 SECONDS (9.7-12.2) 09/15/17 14:34 INR 1.1 09/15/17 14:34 APTT 29 SECONDS (21-34) 09/16/17 06:22 pO2 29 mm/Hg (30-55) L 09/15/17 17:17 VBG pH 7.39 (7.32-7.43) 09/15/17 17:17 VBG pCO2 39 mmHg (40-60) L 09/15/17 17:17 VBG HCO3 22.8 mmol/L 09/15/17 17:17 VBG Total CO2 24.8 mmol/L (22-28) 09/15/17 17:17 VBG O2 Sat (Calc) 64.5 % (40-65) 09/15/17 17:17 VBG Base Excess -1.2 mmol/L (0.0-2.0) L 09/15/17 17:17 VBG Potassium 3.0 mmol/L (3.6-5.2) L 09/15/17 17:17 Sodium 133.0 mmol/l (132-148) 09/15/17 17:17 Chloride 85.0 mmol/L (98-107) L 09/15/17 17:17 Glucose 442 mg/dl (75-110) H* D 09/15/17 17:17 Lactate 0.8 mmol/L (0.7-2.1) 09/15/17 17:17 FiO2 21.0 % 09/15/17 14:35 Crit Value Called To Dr mccain 09/15/17 17:17 Crit Value Called By Dmitriy agarwal 09/15/17 17:17 Crit Value Read Back Y 09/15/17 17:17 Blood Gas Notified Time 1720 09/15/17 17:17 Sodium 138 mmol/L (132-148) 09/20/17 06:07 Potassium 4.1 mmol/L (3.6-5.2) 09/20/17 06:07 Chloride 100 mmol/L (98-107) 09/20/17 06:07 Carbon Dioxide 27 mmol/L (22-30) 09/20/17 06:07 Anion Gap 15 (10-20) 09/20/17 06:07 BUN 26 mg/dL (9-20) H 09/20/17 06:07 Creatinine 6.6 mg/dL (0.8-1.5) H 09/20/17 06:07 Est GFR ( Amer) 10 09/20/17 06:07 Est GFR (Non-Af Amer) 8 09/20/17 06:07 POC Glucose (mg/dL) 215 mg/dL (65-110) H 09/20/17 11:31 Random Glucose 142 mg/dL (75-110) H 09/20/17 06:07 Hemoglobin A1c 5.9 % (4.2-6.5) 09/16/17 06:22 Calcium 9.1 mg/dl (8.6-10.4) 09/20/17 06:07 Phosphorus 4.2 mg/dL (2.5-4.5) 09/20/17 06:07 Magnesium 2.1 mg/dL (1.6-2.3) 09/20/17 06:07 Total Bilirubin 0.4 mg/dL (0.2-1.3) 09/20/17 06:07 AST 49 U/L (17-59) 09/20/17 06:07 ALT 46 U/L (21-72) 09/20/17 06:07 Alkaline Phosphatase 71 U/L (38-126) 09/20/17 06:07 Troponin I 0.0180 ng/mL (0.00-0.120) 09/15/17 14:34 NT-Pro-B Natriuret Pep 1090 pg/mL (0-900) H 09/15/17 14:34 Total Protein 5.7 g/dL (6.3-8.3) L 09/20/17 06:07 Albumin 3.1 g/dL (3.5-5.0) L 09/20/17 06:07 Globulin 2.5 gm/dL (2.2-3.9) 09/20/17 06:07 Albumin/Globulin Ratio 1.2 (1.0-2.1) 09/20/17 06:07 Venous Blood Potassium 3.0 mmol/L (3.6-5.2) L 09/15/17 17:17 Urine Color Colorless (YELLOW) 09/15/17 15:07 Urine Clarity Clear (Clear) 09/15/17 15:07 Urine pH 9.0 (5.0-8.0) 09/15/17 15:07 Ur Specific [place] 1.007 (1.003-1.030) 09/15/17 15:07 Urine Protein 3+ mg/dL (NEGATIVE) H 09/15/17 15:07 Urine Glucose (UA) 2+ mg/dL (Normal) H 09/15/17 15:07 Urine Ketones Negative mg/dL (NEGATIVE) 09/15/17 15:07 Urine Blood Negative (NEGATIVE) 09/15/17 15:07 Urine Nitrate Negative (NEGATIVE) 09/15/17 15:07 Urine Bilirubin Negative (NEGATIVE) 09/15/17 15:07 Urine Urobilinogen Normal mg/dL (0.2-1.0) 09/15/17 15:07 Ur Leukocyte Esterase Neg Betzaida/uL (Negative) 09/15/17 15:07 Urine WBC (Auto) < 1 /hpf (0-5) 09/15/17 15:07 Urine RBC (Auto) < 1 /hpf (0-3) 09/15/17 15:07 Ur Squamous Epith Cells < 1 /hpf (0-5) 09/15/17 15:07 Vancomycin Trough 8.9 ug/mL (5.0-10.0) 09/19/17 17:37 Random Vancomycin 17.61 ug/mL 09/19/17 07:37 C. difficile Ag & Toxin Negative (NEGATIVE) 09/19/17 11:11 Influenza Typ A,B (EIA) Negative for flu a/b (NEGATIVE) 09/15/17 15:44 Blood Type B POSITIVE 09/16/17 08:26 Blood Type Confirm B POSITIVE 09/16/17 08:26 Antibody Screen Negative 09/16/17 08:26 Attending/Attestation - Attestation I have personally seen and examined this patient.: Yes I have fully participated in the care of the patient.: Yes I have reviewed all pertinent clinical information, including history, physical exam and plan: Yes Notes (Text): 09/20/17 15:43 Medical attending: Patient was seen and examined by me, agrees the above note by the medical technologist clinical. As documented above the resident note the patient had a history of see daily for quite some time and on 09/01/2017 he had a permacath placed on his right upper chest as well as creation of left AV fistula this was done in the [facility] in [place], [place]. He was doing fine until he was discharged and while undergoing dialysis he was very ill and sick and was brought to the hospital. He was shown to have fevers and chills. The blood cultures showed that he had enterococcus infection. He was treated with vancomycin as well as Zosyn. The permacath there had to be removed and then a new permacath there was placed on 09/19. He had repeat blood cultures done and these have been negative for the past 3 days. He then underwent dialysis here on 09/19 and again had dialysis today on 09/20 via the new permacatheter He feels well, he's reporting that the fevers and nausea and malaise have resolved. He's given need to follow-up with his regular primary care physician as well as his hemodialysis center. Furthermore as documented above she's continued to continue with the IV vancomycin during dialysis as well as oral ampicillin. thank you Mayank Jackson
[2017-09-20 13:09] VITALS: BP 124/77; PULSE 74; RESP 20; TEMP 98; O2SAT 100
--- NOTE | 2017-09-20 16:51 | CP.PCM.PN ---
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 Continue with Nephrovite 1 tab/day. PRBC as needed for anemia. On YOGI with HD as last Hb 8.4 Continue with phos binders home dose, last phos level 3.6 BP on the low side, hence no acei or ARB Glycemic control, Dialysis consistent diet Further work up/management as per primary team Dose meds/antibiotics for ESRD status. Avoid fleets enema/magnesium based laxatives. ID, vascular consult appreciated d/c planning, pt stable for d/c from renal perspective. ID input for d/c antibiotics. Thanks for allowing me to participate in care of your patient. Will follow patient with you. Please call if any Qs. Dr Constantino Jacobs Office: [phone] Chief Complaint; none HPI: Pt is a 72 M with hx of ESRD on hemodialysis (TTS) via permacath, chronic anemia, hyperphosphatemia, secondary hyperparathyroidism, Diabetes Mellitus, hypertension presented with complaints of chills and fever, found to have Sepsis Patient was started on dialysis recently at another hospital. Also has maturing AV fistula left upper arm Renal consult requested for ESRD management. ROS: Cardiovascular: No chest pain. Pulmonary: No shortness of breath Gastrointestinal: denies abdominal pain No nausea. No vomiting. Genitourinary: No pain while urinating. Denies blood in urine. All other negative except as mentioned in HPI. Physical Examination: seen on HD General Appearance: comfortable, in no acute respiratory distress, co-operative . Vitals reviewed and noted as below Head; Atraumatic, normocephalic ENT: no ulcers no thrush. Tongue is midline. Oropharynx: no rash or ulcers. EYES: Pupils are equal, round and reactive to light accommodation. Eye muscles and extraocular movement intact. Sclera is anicteric. Neck; supple no lymphadenopathy, no thyromegaly or bruit Lungs: Normal respiratory rate/effort. Breath sounds bilateral equal and clear Heart: Normal rate. s1s2 normal. No rub or gallop. Extremities: no edema. No varicose veins Neurological: Patient is alert, awake and oriented to person, place and time. No focal deficit. Strength bilateral appropriate and equal Skin: Warm and dry. Normal turgor. No rash. Palpitation: Normal elasticity for age Abdomen: Abdomen is soft. Bowel sounds +. There is no abdominal tenderness, no guarding/rigidity or organomegaly Psych: normal insight and normal affect/mood MSK: no joint tenderness or swelling. Digits and nails normal, no deformity : kidney or bladder not palpable Access: Left AVG fistula maturing with good thrill and bruit. also has permacath Labs/imaging reviewed. Past medical history, past surgical history, family history, social history, allergy reviewed and noted as below Family Hx: no hx of CKD. Non contributory Blood culture positive for gram-positive cocci Objective - Vital Signs/Intake and Output Vital Signs (last 24 hours): Temp Pulse Resp BP Pulse Ox 98 F 74 20 124/77 100 09/20/17 12:45 09/20/17 12:45 09/20/17 12:45 09/20/17 12:45 09/20/17 12:45 Intake and Output: 09/20/17 09/20/17 06:59 18:59 Intake Total 745 Balance 745 - Labs Labs: 09/20/17 06:07 09/20/17 06:07 PT 12.0 SECONDS (9.7-12.2) 09/15/17 14:34 INR 1.1 09/15/17 14:34 APTT 29 SECONDS (21-34) 09/16/17 06:22
[2017-09-21] MEDS ORDERED: Pantoprazole 40 mg EC Tab PO SCH (10:00)
[2017-09-22] MEDS ORDERED: Ergocalciferol 50,000 Intl Units Cap PO SCH (10:00)
== END 2017-09-20 15:32 | disposition home or self-care (01) | DRG 314 ==
LOC: C.ER 13:35 → C.9E 16:59 → C.6T 18:20
PROVIDERS: ADMIT Hospitalist; ATTEND Hospitalist
PROC: 5A1D70Z Performance of Urinary Filtration, Intermittent, Less than 6 Hours Per Day (ICD-10-PCS; principal; 2017-09-16)
PROC: 05PYX3Z Removal of Infusion Device from Upper Vein, External Approach (ICD-10-PCS; 2017-09-16)
PROC: 30233N1 Transfusion of Nonautologous Red Blood Cells into Peripheral Vein, Percutaneous Approach (ICD-10-PCS; 2017-09-17)
PROC: 02HV33Z Insertion of Infusion Device into Superior Vena Cava, Percutaneous Approach (ICD-10-PCS; 2017-09-19)
DX: T82.7XXA Infection and inflammatory reaction due to other cardiac and vascular devices, implants and grafts, initial encounter (principal); A41.81 Sepsis due to Enterococcus; N18.6 End stage renal disease; I12.0 Hypertensive chronic kidney disease with stage 5 chronic kidney disease or end stage renal disease; N25.81 Secondary hyperparathyroidism of renal origin; D63.1 Anemia in chronic kidney disease; E11.22 Type 2 diabetes mellitus with diabetic chronic kidney disease; Z85.46 Personal history of malignant neoplasm of prostate; Z99.2 Dependence on renal dialysis; Z90.49 Acquired absence of other specified parts of digestive tract; Z79.4 Long term (current) use of insulin